=== PATIENT | male | born 1935 | race Caucasian/White ===

== ENCOUNTER 2018-06-25 13:53 | Inpatient (IN) | payer MEDICARE, BC ==
[2018-06-25 14:23] LABS: CHLORIDE,CL 98 mEq/L (98-106); SODIUM,NA 135 mEq/L (136-145)
[2018-06-25] MEDS ORDERED: Temazepam 15 MG Cap PO PRN (16:33)
[2018-06-25] MEDS ORDERED: Ondansetron 4 MG/2 ML SDV IV PRN (16:33)
[2018-06-25] MEDS ORDERED: Sodium Chloride 0.9% 10 ML Syringe FLUSH PRN (16:33)
[2018-06-25] MEDS ORDERED: Metoprolol Tartrate 25 MG Tab PO SCH (16:45)
[2018-06-25] MEDS ORDERED: Enoxaparin 60 MG/0.6 ML Syringe SUBCUT SCH (16:45)
[2018-06-25] MEDS: Pantoprazole 40 MG Vial IVPUSH SCH (17:19)
[2018-06-25] MEDS: Metoprolol Tartrate 25 MG Tab PO SCH (19:26)
[2018-06-25] MEDS: Insulin Glarg,Human.Rec.Analog 100 UNIT/ML ML SUBCUT SCH (19:42)
[2018-06-25] MEDS: Losartan 25 MG Tab PO SCH (19:43)
[2018-06-26] MEDS ORDERED: Metoprolol Tartrate 25 MG Tab PO ONE (08:58)
[2018-06-26] MEDS: Venlafaxine 75 MG Cap.ER PO SCH (09:20)
[2018-06-26] MEDS: Tamsulosin 0.4 MG Cap.ER PO SCH (09:20)
[2018-06-26] MEDS: Pantoprazole 40 MG Vial IVPUSH SCH (09:21)
[2018-06-26] MEDS: Metoprolol Tartrate 25 MG Tab PO SCH ×2 (09:53→19:50)
[2018-06-26] MEDS ORDERED: Metoprolol Tartrate 25 MG Tab ONE (09:54)
--- NOTE | 2018-06-26 13:39 | PCM.PN ---
- General Info Date of Service: 06/26/18 Admission Dx/Problem (Free Text): Atrial Fib with RVR Functional Status: Reports: Pain Controlled, Tolerating Diet, Ambulating - Review of Systems General: Denies: Weakness, Fatigue HEENT: Reports: No Symptoms Pulmonary: Denies: Shortness of Breath, Cough Cardiovascular: Reports: Edema. Denies: Chest Pain Gastrointestinal: Denies: Abdominal Pain, Nausea, Vomiting Genitourinary: Reports: No Symptoms Musculoskeletal: Reports: No Symptoms Skin: Reports: No Symptoms Neurological: Reports: No Symptoms - Patient Data Vitals - Most Recent: Last Vital Signs Temp 97.6 F 06/26/18 12:00 Pulse 98 06/26/18 12:00 Resp 18 06/26/18 12:00 BP 120/64 06/26/18 12:00 Pulse Ox 99 06/26/18 12:00 Weight - Most Recent: 154 lb 9.6 oz Lab Results Last 24 Hours: Laboratory Results - last 24 hr 06/25/18 06/25/18 06/25/18 Range/Units 14:00 14:00 14:00 WBC 5.3 (5.0-10.0) 10^3/uL RBC 3.97 L (4.50-6.00) 10^6/uL Hgb 11.7 L (14.0-18.0) g/dL Hct 36.1 L (40.0-54.0) % MCV 90.9 (82.0-94.0) fL MCH 29.5 (27.0-32.0) pg MCHC 32.4 L (33.0-38.0) g/dL RDW Coeff of Alisson 14.1 (11.0-15.0) % Plt Count 410 H (150-400) 10^3/uL Neut % (Auto) 68.3 (35-85) % Lymph % (Auto) 19.7 (10-55) % [place] % (Auto) 11.6 (0-16) % Eos % (Auto) 0.2 (0-5) % Baso % (Auto) 0.2 (0-3) % Neut # (Auto) 3.64 (1.80-7.00) 10^3/uL Lymph # (Auto) 1.05 (1.00-4.80) 10^3/uL [place] # (Auto) 0.62 (0.00-0.80) 10^3/uL Eos # (Auto) 0.01 (0.00-0.45) 10^3/uL Baso # (Auto) 0.01 10^3/uL Sodium 135 L (136-145) mEq/L Potassium 4.9 (3.5-5.0) mEq/L Chloride 98 (98-106) mEq/L Carbon Dioxide 25 (21-32) mmol/L BUN 25 H (7-18) mg/dL Creatinine 1.9 H (0.7-1.3) mg/dL Est Cr Clr Drug Dosing TNP Estimated GFR (MDRD) 34 L (>=60) mL/min Glucose 549 H* D (75-99) mg/dL POC Glucose (75-105) mg/dl Calcium 9.1 (8.4-10.1) mg/dL Total Bilirubin 0.4 (0.0-1.0) mg/dL AST 30 (15-37) U/L ALT 67 (12-78) U/L Alkaline Phosphatase 215 H (46-116) U/L Troponin I 0.088 H (0.00-0.06) ng/mL C-Reactive Protein 2.4 H (0.2-0.8) mg/dL Total Protein 6.8 (6.4-8.2) g/dL Albumin 2.3 L (3.4-5.0) g/dL Urine Color Yellow (YELLOW) Urine Appearance Clear (CLEAR) Urine pH 5.0 (4.5-8.0) Ur Specific [place] 1.015 (1.003-1.020) Urine Protein Trace H (NEGATIVE) mg/dL Urine Glucose (UA) >=1000 H (NEGATIVE) mg/dL Urine Ketones Negative (NEGATIVE) mg/dL Urine Occult Blood Negative (NEGATIVE) Urine Nitrite Negative (NEGATIVE) Urine Bilirubin Negative (NEGATIVE) Urine Urobilinogen 0.2 (0.2-1.0) EU/dL Ur Leukocyte Esterase Negative (NEGATIVE) Urine RBC Not seen (0-5) /HPF Urine WBC Not seen (0-5) /HPF Ur Epithelial Cells Occasional H (NOT SEEN) /HPF Urine Mucus Occasional H (NOT SEEN) /HPF 06/25/18 06/25/18 06/26/18 Range/Units 19:40 21:09 07:00 WBC (5.0-10.0) 10^3/uL RBC (4.50-6.00) 10^6/uL Hgb (14.0-18.0) g/dL Hct (40.0-54.0) % MCV (82.0-94.0) fL MCH (27.0-32.0) pg MCHC (33.0-38.0) g/dL RDW Coeff of Alisson (11.0-15.0) % Plt Count (150-400) 10^3/uL Neut % (Auto) (35-85) % Lymph % (Auto) (10-55) % [place] % (Auto) (0-16) % Eos % (Auto) (0-5) % Baso % (Auto) (0-3) % Neut # (Auto) (1.80-7.00) 10^3/uL Lymph # (Auto) (1.00-4.80) 10^3/uL [place] # (Auto) (0.00-0.80) 10^3/uL Eos # (Auto) (0.00-0.45) 10^3/uL Baso # (Auto) 10^3/uL Sodium (136-145) mEq/L Potassium (3.5-5.0) mEq/L Chloride (98-106) mEq/L Carbon Dioxide (21-32) mmol/L BUN (7-18) mg/dL Creatinine (0.7-1.3) mg/dL Est Cr Clr Drug Dosing Estimated GFR (MDRD) (>=60) mL/min Glucose (75-99) mg/dL POC Glucose 300 H 225 H (75-105) mg/dl Calcium (8.4-10.1) mg/dL Total Bilirubin (0.0-1.0) mg/dL AST (15-37) U/L ALT (12-78) U/L Alkaline Phosphatase (46-116) U/L Troponin I 0.084 H (0.00-0.06) ng/mL C-Reactive Protein (0.2-0.8) mg/dL Total Protein (6.4-8.2) g/dL Albumin (3.4-5.0) g/dL Urine Color (YELLOW) Urine Appearance (CLEAR) Urine pH (4.5-8.0) Ur Specific [place] (1.003-1.020) Urine Protein (NEGATIVE) mg/dL Urine Glucose (UA) (NEGATIVE) mg/dL Urine Ketones (NEGATIVE) mg/dL Urine Occult Blood (NEGATIVE) Urine Nitrite (NEGATIVE) Urine Bilirubin (NEGATIVE) Urine Urobilinogen (0.2-1.0) EU/dL Ur Leukocyte Esterase (NEGATIVE) Urine RBC (0-5) /HPF Urine WBC (0-5) /HPF Ur Epithelial Cells (NOT SEEN) /HPF Urine Mucus (NOT SEEN) /HPF 06/26/18 Range/Units 08:01 WBC (5.0-10.0) 10^3/uL RBC (4.50-6.00) 10^6/uL Hgb (14.0-18.0) g/dL Hct (40.0-54.0) % MCV (82.0-94.0) fL MCH (27.0-32.0) pg MCHC (33.0-38.0) g/dL RDW Coeff of Alisson (11.0-15.0) % Plt Count (150-400) 10^3/uL Neut % (Auto) (35-85) % Lymph % (Auto) (10-55) % [place] % (Auto) (0-16) % Eos % (Auto) (0-5) % Baso % (Auto) (0-3) % Neut # (Auto) (1.80-7.00) 10^3/uL Lymph # (Auto) (1.00-4.80) 10^3/uL [place] # (Auto) (0.00-0.80) 10^3/uL Eos # (Auto) (0.00-0.45) 10^3/uL Baso # (Auto) 10^3/uL Sodium (136-145) mEq/L Potassium (3.5-5.0) mEq/L Chloride (98-106) mEq/L Carbon Dioxide (21-32) mmol/L BUN (7-18) mg/dL Creatinine (0.7-1.3) mg/dL Est Cr Clr Drug Dosing Estimated GFR (MDRD) (>=60) mL/min Glucose (75-99) mg/dL POC Glucose 53 L (75-105) mg/dl Calcium (8.4-10.1) mg/dL Total Bilirubin (0.0-1.0) mg/dL AST (15-37) U/L ALT (12-78) U/L Alkaline Phosphatase (46-116) U/L Troponin I (0.00-0.06) ng/mL C-Reactive Protein (0.2-0.8) mg/dL Total Protein (6.4-8.2) g/dL Albumin (3.4-5.0) g/dL Urine Color (YELLOW) Urine Appearance (CLEAR) Urine pH (4.5-8.0) Ur Specific [place] (1.003-1.020) Urine Protein (NEGATIVE) mg/dL Urine Glucose (UA) (NEGATIVE) mg/dL Urine Ketones (NEGATIVE) mg/dL Urine Occult Blood (NEGATIVE) Urine Nitrite (NEGATIVE) Urine Bilirubin (NEGATIVE) Urine Urobilinogen (0.2-1.0) EU/dL Ur Leukocyte Esterase (NEGATIVE) Urine RBC (0-5) /HPF Urine WBC (0-5) /HPF Ur Epithelial Cells (NOT SEEN) /HPF Urine Mucus (NOT SEEN) /HPF Med Orders - Current: Current Medications Enoxaparin Sodium (Lovenox) 60 mg SUBCUT 1600 [facility] Last Admin: 06/25/18 17:19 Dose: 60 mg Insulin Aspart (Novolog) 0 unit SUBCUT WITHMEALSANDBED [facility]; Protocol Last Admin: 06/26/18 13:16 Dose: 8 units Insulin Glargine (Lantus) 30 unit SUBCUT BEDTIME [facility] Last Admin: 06/25/18 19:42 Dose: 30 units Losartan Potassium (Cozaar) 50 mg PO BEDTIME [facility] Last Admin: 06/25/18 19:43 Dose: 50 mg Metoprolol Tartrate (Lopressor) 37.5 mg PO BID [facility] Ondansetron HCl (Zofran) 4 mg IV Q4H PRN PRN Reason: Nausea/Vomiting Pantoprazole Sodium (Protonix Iv) 40 mg IVPUSH 0800 [facility] Last Admin: 06/26/18 09:21 Dose: 40 mg Sodium Chloride (Saline Flush) 10 ml FLUSH ASDIRECTED PRN PRN Reason: Keep Vein Open Tamsulosin HCl (Flomax) 0.4 mg PO DAILY [facility] Last Admin: 06/26/18 09:20 Dose: 0.4 mg Temazepam (Restoril) 15 mg PO BEDTIME PRN PRN Reason: Sleep Venlafaxine HCl (Effexor Xr) 150 mg PO DAILY [facility] Last Admin: 06/26/18 09:20 Dose: 150 mg Discontinued Medications Insulin Aspart (Novolog) 15 unit SUBCUT ONETIME ONE Stop: 06/25/18 17:06 Last Admin: 06/25/18 17:19 Dose: 15 units Metoprolol Tartrate (Lopressor) 25 mg PO Q12H [facility] Last Admin: 06/25/18 17:18 Dose: 25 mg Metoprolol Tartrate (Lopressor) 25 mg PO BID [facility] Last Admin: 06/26/18 09:53 Dose: 25 mg Metoprolol Tartrate (Lopressor) 12.5 mg PO ONETIME ONE Stop: 06/26/18 08:59 Last Admin: 06/26/18 09:20 Dose: 12.5 mg Metoprolol Tartrate (Lopressor) Confirm Administered Dose 25 mg .ROUTE .STK-MED ONE Stop: 06/26/18 09:55 Last Admin: 06/26/18 09:53 Dose: Not Given - Exam General: Alert, Oriented HEENT: Mucous Membr. Moist/[place] Neck: Supple Lungs: Clear to Auscultation, Normal Respiratory Effort Cardiovascular: Irregular Rhythm, Tachycardia GI/Abdominal Exam: Normal Bowel Sounds, Soft, Non-Tender Extremities: No Pedal Edema (LLE 2-3+ edema, pitting) Skin: Warm, Dry Neurological: No New Focal Deficit - Problem List & Annotations (1) Atrial fibrillation with RVR SNOMED Code(s): 332550924014512 Code(s): I48.91 - UNSPECIFIED ATRIAL FIBRILLATION Status: Acute Priority : High Current Visit: Yes - Problem List Review Problem List Initiated/Reviewed/Updated: Yes - My Orders Last 24 Hours: My Active Orders 06/26/18 20:00 Metoprolol Tartrate [Lopressor] 37.5 mg PO BID - Assessment Assessment:: New Onset Atrial Fib with RVR. - Plan Plan:: Patient feeling good today. Denies nausea. No shortness of breath or chest discomfort. Denies palpitations. Able to eat without difficulty after returning from CT scan this am. Heart rhythm still noted atrial fib with rate in the 130s. Blood pressure stable this am 150/70s. Blood sugar was high on admit. Got 15 units on admit. This am, blood sugar down to 44. Does have edema 2-3+ pitting in LLE. Did increase Metoprolol to 37.5 mg BID to see if we get better control of his rate. Continue to monitor telemetry. Sliding scale insulin, will allow us to control overall dose of Lantus with needed requirements on discharge. Start Eliquis BID, renal dose at 2.5 mg BID. Inappropriate for discharge due to ongoing RVR and uncontrolled diabetes.
[2018-06-26] MEDS: Losartan 25 MG Tab PO SCH (19:49)
[2018-06-26] MEDS: Apixaban 5 MG Tab PO SCH (19:51)
[2018-06-26] MEDS: Insulin Glarg,Human.Rec.Analog 100 UNIT/ML ML SUBCUT SCH (20:53)
[2018-06-27] MEDS: Apixaban 5 MG Tab PO SCH ×2 (07:32→20:02)
[2018-06-27] MEDS: Metoprolol Tartrate 25 MG Tab PO SCH ×2 (07:32→20:03)
[2018-06-27] MEDS: Tamsulosin 0.4 MG Cap.ER PO SCH (07:34)
[2018-06-27] MEDS: Venlafaxine 75 MG Cap.ER PO SCH (07:34)
[2018-06-27] MEDS: Pantoprazole 40 MG Vial IVPUSH SCH (07:49)
[2018-06-27] MEDS ORDERED: Insulin Aspart 100 Units/ML 3 ML Pen SUBCUT SCH (12:00)
--- NOTE | 2018-06-27 14:04 | PCM.PN ---
- General Info Date of Service: 06/27/18 Functional Status: Reports: Pain Controlled, Tolerating Diet, Ambulating, Urinating - Review of Systems General: Reports: No Symptoms HEENT: Reports: No Symptoms Pulmonary: Reports: Shortness of Breath Cardiovascular: Reports: No Symptoms Gastrointestinal: Reports: No Symptoms. Denies: Nausea, Vomiting Genitourinary: Reports: No Symptoms Musculoskeletal: Reports: No Symptoms Skin: Reports: No Symptoms Neurological: Reports: No Symptoms Psychiatric: Reports: No Symptoms - Patient Data Vitals - Most Recent: Last Vital Signs Temp 97.3 F 06/27/18 12:00 Pulse 62 06/27/18 12:00 Resp 16 06/27/18 12:00 BP 121/56 L 06/27/18 12:00 Pulse Ox 99 06/27/18 12:00 Weight - Most Recent: 154 lb 9.6 oz Lab Results Last 24 Hours: Laboratory Results - last 24 hr 06/26/18 06/26/18 06/26/18 Range/Units 09:27 11:57 17:13 WBC (5.0-10.0) 10^3/uL RBC (4.50-6.00) 10^6/uL Hgb (14.0-18.0) g/dL Hct (40.0-54.0) % MCV (82.0-94.0) fL MCH (27.0-32.0) pg MCHC (33.0-38.0) g/dL RDW Coeff of Alisson (11.0-15.0) % Plt Count (150-400) 10^3/uL Neut % (Auto) (35-85) % Lymph % (Auto) (10-55) % [place] % (Auto) (0-16) % Eos % (Auto) (0-5) % Baso % (Auto) (0-3) % Neut # (Auto) (1.80-7.00) 10^3/uL Lymph # (Auto) (1.00-4.80) 10^3/uL [place] # (Auto) (0.00-0.80) 10^3/uL Eos # (Auto) (0.00-0.45) 10^3/uL Baso # (Auto) 10^3/uL Sodium (136-145) mEq/L Potassium (3.5-5.0) mEq/L Chloride (98-106) mEq/L Carbon Dioxide (21-32) mmol/L BUN (7-18) mg/dL Creatinine (0.7-1.3) mg/dL Est Cr Clr Drug Dosing mL/min Estimated GFR (MDRD) (>=60) mL/min Glucose (75-99) mg/dL POC Glucose 211 H 331 H 175 H (75-105) mg/dl Calcium (8.4-10.1) mg/dL NT-Pro-B Natriuret Pep (0-1000) pg/mL 06/26/18 06/27/18 06/27/18 Range/Units 20:40 04:02 04:43 WBC (5.0-10.0) 10^3/uL RBC (4.50-6.00) 10^6/uL Hgb (14.0-18.0) g/dL Hct (40.0-54.0) % MCV (82.0-94.0) fL MCH (27.0-32.0) pg MCHC (33.0-38.0) g/dL RDW Coeff of Alisson (11.0-15.0) % Plt Count (150-400) 10^3/uL Neut % (Auto) (35-85) % Lymph % (Auto) (10-55) % [place] % (Auto) (0-16) % Eos % (Auto) (0-5) % Baso % (Auto) (0-3) % Neut # (Auto) (1.80-7.00) 10^3/uL Lymph # (Auto) (1.00-4.80) 10^3/uL [place] # (Auto) (0.00-0.80) 10^3/uL Eos # (Auto) (0.00-0.45) 10^3/uL Baso # (Auto) 10^3/uL Sodium (136-145) mEq/L Potassium (3.5-5.0) mEq/L Chloride (98-106) mEq/L Carbon Dioxide (21-32) mmol/L BUN (7-18) mg/dL Creatinine (0.7-1.3) mg/dL Est Cr Clr Drug Dosing mL/min Estimated GFR (MDRD) (>=60) mL/min Glucose (75-99) mg/dL POC Glucose 221 H 43 L* 93 (75-105) mg/dl Calcium (8.4-10.1) mg/dL NT-Pro-B Natriuret Pep (0-1000) pg/mL 06/27/18 06/27/18 06/27/18 Range/Units 07:30 08:50 08:50 WBC 4.9 L (5.0-10.0) 10^3/uL RBC 3.60 L (4.50-6.00) 10^6/uL Hgb 10.7 L (14.0-18.0) g/dL Hct 33.1 L (40.0-54.0) % MCV 91.9 (82.0-94.0) fL MCH 29.7 (27.0-32.0) pg MCHC 32.3 L (33.0-38.0) g/dL RDW Coeff of Alisson 14.4 (11.0-15.0) % Plt Count 310 (150-400) 10^3/uL Neut % (Auto) 67.7 (35-85) % Lymph % (Auto) 17.3 (10-55) % [place] % (Auto) 12.8 (0-16) % Eos % (Auto) 1.8 (0-5) % Baso % (Auto) 0.4 (0-3) % Neut # (Auto) 3.33 (1.80-7.00) 10^3/uL Lymph # (Auto) 0.85 L (1.00-4.80) 10^3/uL [place] # (Auto) 0.63 (0.00-0.80) 10^3/uL Eos # (Auto) 0.09 (0.00-0.45) 10^3/uL Baso # (Auto) 0.02 10^3/uL Sodium 138 (136-145) mEq/L Potassium 5.0 (3.5-5.0) mEq/L Chloride 104 (98-106) mEq/L Carbon Dioxide 28 (21-32) mmol/L BUN 28 H (7-18) mg/dL Creatinine 1.6 H (0.7-1.3) mg/dL Est Cr Clr Drug Dosing 34.44 mL/min Estimated GFR (MDRD) 42 L (>=60) mL/min Glucose 206 H D (75-99) mg/dL POC Glucose 168 H (75-105) mg/dl Calcium 9.0 (8.4-10.1) mg/dL NT-Pro-B Natriuret Pep 3619 H (0-1000) pg/mL 06/27/18 Range/Units 11:43 WBC (5.0-10.0) 10^3/uL RBC (4.50-6.00) 10^6/uL Hgb (14.0-18.0) g/dL Hct (40.0-54.0) % MCV (82.0-94.0) fL MCH (27.0-32.0) pg MCHC (33.0-38.0) g/dL RDW Coeff of Alisson (11.0-15.0) % Plt Count (150-400) 10^3/uL Neut % (Auto) (35-85) % Lymph % (Auto) (10-55) % [place] % (Auto) (0-16) % Eos % (Auto) (0-5) % Baso % (Auto) (0-3) % Neut # (Auto) (1.80-7.00) 10^3/uL Lymph # (Auto) (1.00-4.80) 10^3/uL [place] # (Auto) (0.00-0.80) 10^3/uL Eos # (Auto) (0.00-0.45) 10^3/uL Baso # (Auto) 10^3/uL Sodium (136-145) mEq/L Potassium (3.5-5.0) mEq/L Chloride (98-106) mEq/L Carbon Dioxide (21-32) mmol/L BUN (7-18) mg/dL Creatinine (0.7-1.3) mg/dL Est Cr Clr Drug Dosing mL/min Estimated GFR (MDRD) (>=60) mL/min Glucose (75-99) mg/dL POC Glucose 316 H (75-105) mg/dl Calcium (8.4-10.1) mg/dL NT-Pro-B Natriuret Pep (0-1000) pg/mL Med Orders - Current: Current Medications Apixaban (Eliquis) 2.5 mg PO BID [facility] Last Admin: 06/27/18 07:32 Dose: 2.5 mg Insulin Aspart (Novolog) 0 unit SUBCUT BID@1200,1730 [facility]; Protocol Last Admin: 06/27/18 13:09 Dose: 4 units Insulin Glargine (Lantus) 20 unit SUBCUT BEDTIME [facility] Losartan Potassium (Cozaar) 50 mg PO BEDTIME [facility] Last Admin: 06/26/18 19:49 Dose: 50 mg Metoprolol Tartrate (Lopressor) 37.5 mg PO BID [facility] Last Admin: 06/27/18 07:32 Dose: 37.5 mg Ondansetron HCl (Zofran) 4 mg IV Q4H PRN PRN Reason: Nausea/Vomiting Pantoprazole Sodium (Protonix Iv) 40 mg IVPUSH 0800 [facility] Last Admin: 06/27/18 07:49 Dose: 40 mg Sodium Chloride (Saline Flush) 10 ml FLUSH ASDIRECTED PRN PRN Reason: Keep Vein Open Tamsulosin HCl (Flomax) 0.4 mg PO DAILY [facility] Last Admin: 06/27/18 07:34 Dose: 0.4 mg Temazepam (Restoril) 15 mg PO BEDTIME PRN PRN Reason: Sleep Venlafaxine HCl (Effexor Xr) 150 mg PO DAILY [facility] Last Admin: 06/27/18 07:34 Dose: 150 mg Discontinued Medications Enoxaparin Sodium (Lovenox) 60 mg SUBCUT 1600 [facility] Last Admin: 06/25/18 17:19 Dose: 60 mg Insulin Aspart (Novolog) 0 unit SUBCUT WITHMEALSANDBED [facility]; Protocol Last Admin: 06/27/18 07:37 Dose: 2 units Insulin Aspart (Novolog) 15 unit SUBCUT ONETIME ONE Stop: 06/25/18 17:06 Last Admin: 06/25/18 17:19 Dose: 15 units Insulin Aspart (Novolog) 0 unit SUBCUT BID@1200,1730 [facility]; Protocol Last Admin: 06/27/18 12:37 Dose: Not Given Insulin Glargine (Lantus) 30 unit SUBCUT BEDTIME [facility] Last Admin: 06/26/18 20:53 Dose: 30 units Metoprolol Tartrate (Lopressor) 25 mg PO Q12H [facility] Last Admin: 06/25/18 17:18 Dose: 25 mg Metoprolol Tartrate (Lopressor) 25 mg PO BID [facility] Last Admin: 06/26/18 09:53 Dose: 25 mg Metoprolol Tartrate (Lopressor) 12.5 mg PO ONETIME ONE Stop: 06/26/18 08:59 Last Admin: 06/26/18 09:20 Dose: 12.5 mg Metoprolol Tartrate (Lopressor) Confirm Administered Dose 25 mg .ROUTE .STK-MED ONE Stop: 06/26/18 09:55 Last Admin: 06/26/18 09:53 Dose: Not Given - Exam General: Alert, Oriented, Cooperative, No Acute Distress Neck: Supple, Trachea Midline, No JVD, No Thyromegaly Lungs: Clear to Auscultation, Normal Respiratory Effort Cardiovascular: Irregular Rhythm, Other (Rate 110 on exam.) (Male) Exam: Deferred Back Exam: Normal Inspection, Full Range of Motion. No: CVA Tenderness (L), CVA Tenderness (R) Extremities: Normal Inspection, Normal Range of Motion, Non-Tender, No Pedal Edema, Normal Capillary Refill Peripheral Pulses: 2+: Radial (L), Radial (R), Posterior Tibial (L), Posterior Tibial (R), Dorsalis Pedis (L), Dorsalis Pedis (R) Skin: Warm, Dry, Intact Neurological: No New Focal Deficit, Normal Speech Psy/Mental Status: Alert, Normal Affect, Normal Mood - Problem List Review Problem List Initiated/Reviewed/Updated: Yes - My Orders Last 24 Hours: My Active Orders 06/27/18 12:35 Insulin Aspart [NovoLOG] 0 unit SUBCUT BID@1200,1730 06/27/18 20:00 Insulin Glarg,Human.Rec.Analog [LantUS] 20 unit SUBCUT BEDTIME 06/28/18 05:00 BMP [BASIC METABOLIC PANEL,BMP] [CHEM] DAILY CBC WITH AUTO DIFF [HEME] DAILY PRO B-TYPE NATRIUR PEPT,BNPPRO [CHEM] DAILY 06/29/18 05:00 BMP [BASIC METABOLIC PANEL,BMP] [CHEM] DAILY CBC WITH AUTO DIFF [HEME] DAILY PRO B-TYPE NATRIUR PEPT,BNPPRO [CHEM] DAILY - Assessment Assessment:: New Onset Atrial Fib with RVR. - Plan Plan:: Patient feeling good today. Denies nausea. No shortness of breath or chest discomfort. Denies palpitations. Able to eat without difficulty after returning from CT scan this am. Heart rhythm still noted atrial fib with rate in the 130s. Blood pressure stable this am 150/70s. Blood sugar was high on admit. Got 15 units on admit. This am, blood sugar down to 44. Does have edema 2-3+ pitting in LLE. Did increase Metoprolol to 37.5 mg BID to see if we get better control of his rate. Continue to monitor telemetry. Sliding scale insulin, will allow us to control overall dose of Lantus with needed requirements on discharge. Start Eliquis BID, renal dose at 2.5 mg BID. Inappropriate for discharge due to ongoing RVR and uncontrolled diabetes. 06/27/18 The patient today has a HR that fluctuates at times controlled a-fib in the 70s , to back up to uncontrolled a-fib 110. Will continue current dose of Metoprolol at this time. The patient reports some mild shortness of breath. He reports his nausea is improved. The patient BS have been low in the 40s in the morning, elevate with giving juice and food at that time. The patient then during the day elevates in the 300s. I have decreased his insluin at bedtime, and added BID sliding scale during the day. Will continue admit.
[2018-06-27] MEDS: Losartan 25 MG Tab PO SCH (20:04)
[2018-06-27] MEDS: Insulin Glarg,Human.Rec.Analog 100 UNIT/ML ML SUBCUT SCH (21:15)
[2018-06-28] MEDS: Venlafaxine 75 MG Cap.ER PO SCH (08:05)
[2018-06-28] MEDS: Apixaban 5 MG Tab PO SCH ×2 (08:06→20:09)
[2018-06-28] MEDS: Metoprolol Tartrate 25 MG Tab PO SCH (08:06)
[2018-06-28] MEDS: Tamsulosin 0.4 MG Cap.ER PO SCH (08:06)
[2018-06-28] MEDS: Pantoprazole 40 MG Vial IVPUSH SCH (08:08)
[2018-06-28] MEDS ORDERED: Metoprolol Tartrate 25 MG Tab PO ONE (08:29)
--- NOTE | 2018-06-28 17:03 | PCM.PN ---
- General Info Date of Service: 06/28/18 Functional Status: Reports: Pain Controlled, Tolerating Diet, Ambulating, Urinating - Review of Systems General: Reports: No Symptoms HEENT: Reports: No Symptoms Pulmonary: Reports: No Symptoms Cardiovascular: Reports: No Symptoms Gastrointestinal: Reports: No Symptoms Genitourinary: Reports: No Symptoms Musculoskeletal: Reports: No Symptoms Skin: Reports: No Symptoms Neurological: Reports: No Symptoms Psychiatric: Reports: No Symptoms - Patient Data Vitals - Most Recent: Last Vital Signs Temp 97.9 F 06/28/18 15:35 Pulse 89 06/28/18 15:35 Resp 16 06/28/18 15:35 BP 117/62 06/28/18 15:35 Pulse Ox 100 06/28/18 15:35 Weight - Most Recent: 154 lb 9.6 oz Lab Results Last 24 Hours: Laboratory Results - last 24 hr 06/27/18 06/27/18 06/28/18 Range/Units 17:03 20:35 07:00 WBC 4.9 L (5.0-10.0) 10^3/uL RBC 3.92 L (4.50-6.00) 10^6/uL Hgb 11.4 L (14.0-18.0) g/dL Hct 35.6 L (40.0-54.0) % MCV 90.8 (82.0-94.0) fL MCH 29.1 (27.0-32.0) pg MCHC 32.0 L (33.0-38.0) g/dL RDW Coeff of Alisson 14.0 (11.0-15.0) % Plt Count 328 (150-400) 10^3/uL Neut % (Auto) 61.9 (35-85) % Lymph % (Auto) 23.6 (10-55) % [place] % (Auto) 12.3 (0-16) % Eos % (Auto) 1.6 (0-5) % Baso % (Auto) 0.6 (0-3) % Neut # (Auto) 3.02 (1.80-7.00) 10^3/uL Lymph # (Auto) 1.15 (1.00-4.80) 10^3/uL [place] # (Auto) 0.60 (0.00-0.80) 10^3/uL Eos # (Auto) 0.08 (0.00-0.45) 10^3/uL Baso # (Auto) 0.03 10^3/uL Sodium (136-145) mEq/L Potassium (3.5-5.0) mEq/L Chloride (98-106) mEq/L Carbon Dioxide (21-32) mmol/L BUN (7-18) mg/dL Creatinine (0.7-1.3) mg/dL Est Cr Clr Drug Dosing mL/min Estimated GFR (MDRD) (>=60) mL/min Glucose (75-99) mg/dL POC Glucose 284 H 347 H (75-105) mg/dl Calcium (8.4-10.1) mg/dL NT-Pro-B Natriuret Pep (0-1000) pg/mL 06/28/18 06/28/18 06/28/18 Range/Units 07:10 07:53 11:51 WBC (5.0-10.0) 10^3/uL RBC (4.50-6.00) 10^6/uL Hgb (14.0-18.0) g/dL Hct (40.0-54.0) % MCV (82.0-94.0) fL MCH (27.0-32.0) pg MCHC (33.0-38.0) g/dL RDW Coeff of Alisson (11.0-15.0) % Plt Count (150-400) 10^3/uL Neut % (Auto) (35-85) % Lymph % (Auto) (10-55) % [place] % (Auto) (0-16) % Eos % (Auto) (0-5) % Baso % (Auto) (0-3) % Neut # (Auto) (1.80-7.00) 10^3/uL Lymph # (Auto) (1.00-4.80) 10^3/uL [place] # (Auto) (0.00-0.80) 10^3/uL Eos # (Auto) (0.00-0.45) 10^3/uL Baso # (Auto) 10^3/uL Sodium 139 (136-145) mEq/L Potassium 4.5 (3.5-5.0) mEq/L Chloride 104 (98-106) mEq/L Carbon Dioxide 30 (21-32) mmol/L BUN 26 H (7-18) mg/dL Creatinine 1.5 H (0.7-1.3) mg/dL Est Cr Clr Drug Dosing 36.73 mL/min Estimated GFR (MDRD) 45 L (>=60) mL/min Glucose 133 H D (75-99) mg/dL POC Glucose 135 H 355 H (75-105) mg/dl Calcium 9.5 (8.4-10.1) mg/dL NT-Pro-B Natriuret Pep 4879 H (0-1000) pg/mL Med Orders - Current: Current Medications Apixaban (Eliquis) 2.5 mg PO BID [facility] Last Admin: 06/28/18 08:06 Dose: 2.5 mg Insulin Aspart (Novolog) 0 unit SUBCUT BID@1200,1730 [facility]; Protocol Last Admin: 06/28/18 11:54 Dose: 5 units Insulin Glargine (Lantus) 20 unit SUBCUT BEDTIME [facility] Last Admin: 06/27/18 21:15 Dose: 20 units Losartan Potassium (Cozaar) 50 mg PO BEDTIME [facility] Last Admin: 06/27/18 20:04 Dose: 50 mg Metoprolol Tartrate (Lopressor) 50 mg PO BID [facility] Ondansetron HCl (Zofran) 4 mg IV Q4H PRN PRN Reason: Nausea/Vomiting Pantoprazole Sodium (Protonix Iv) 40 mg IVPUSH 0800 [facility] Last Admin: 06/28/18 08:08 Dose: 40 mg Sodium Chloride (Saline Flush) 10 ml FLUSH ASDIRECTED PRN PRN Reason: Keep Vein Open Tamsulosin HCl (Flomax) 0.4 mg PO DAILY [facility] Last Admin: 06/28/18 08:06 Dose: 0.4 mg Temazepam (Restoril) 15 mg PO BEDTIME PRN PRN Reason: Sleep Venlafaxine HCl (Effexor Xr) 150 mg PO DAILY [facility] Last Admin: 06/28/18 08:05 Dose: 150 mg Discontinued Medications Enoxaparin Sodium (Lovenox) 60 mg SUBCUT 1600 [facility] Last Admin: 06/25/18 17:19 Dose: 60 mg Insulin Aspart (Novolog) 0 unit SUBCUT WITHMEALSANDBED [facility]; Protocol Last Admin: 06/27/18 07:37 Dose: 2 units Insulin Aspart (Novolog) 15 unit SUBCUT ONETIME ONE Stop: 06/25/18 17:06 Last Admin: 06/25/18 17:19 Dose: 15 units Insulin Aspart (Novolog) 0 unit SUBCUT BID@1200,1730 [facility]; Protocol Last Admin: 06/27/18 12:37 Dose: Not Given Insulin Glargine (Lantus) 30 unit SUBCUT BEDTIME [facility] Last Admin: 06/26/18 20:53 Dose: 30 units Metoprolol Tartrate (Lopressor) 25 mg PO Q12H [facility] Last Admin: 06/25/18 17:18 Dose: 25 mg Metoprolol Tartrate (Lopressor) 25 mg PO BID [facility] Last Admin: 06/26/18 09:53 Dose: 25 mg Metoprolol Tartrate (Lopressor) 37.5 mg PO BID [facility] Last Admin: 06/28/18 08:06 Dose: 37.5 mg Metoprolol Tartrate (Lopressor) 12.5 mg PO ONETIME ONE Stop: 06/26/18 08:59 Last Admin: 06/26/18 09:20 Dose: 12.5 mg Metoprolol Tartrate (Lopressor) Confirm Administered Dose 25 mg .ROUTE .STK-MED ONE Stop: 06/26/18 09:55 Last Admin: 06/26/18 09:53 Dose: Not Given Metoprolol Tartrate (Lopressor) 12.5 mg PO ONETIME ONE Stop: 06/28/18 08:30 Last Admin: 06/28/18 09:47 Dose: 12.5 mg - Exam General: Alert, Oriented, Cooperative, No Acute Distress Neck: Supple, Trachea Midline, No JVD, No Thyromegaly Lungs: Clear to Auscultation, Normal Respiratory Effort Cardiovascular: Irregular Rhythm (80 rate on exam) GI/Abdominal Exam: Normal Bowel Sounds, Soft, Non-Tender, No Organomegaly, No Distention, No Abnormal Bruit, No Mass, Pelvis Stable Back Exam: Normal Inspection, Full Range of Motion Extremities: Normal Inspection, Normal Range of Motion, Non-Tender, Normal Capillary Refill, Pedal Edema (+2 LLE. +1 RLE) Peripheral Pulses: 2+: Radial (L), Radial (R), Posterior Tibial (L), Posterior Tibial (R), Dorsalis Pedis (L), Dorsalis Pedis (R) Skin: Warm, Dry, Intact Neurological: No New Focal Deficit Psy/Mental Status: Alert, Normal Affect, Normal Mood - Problem List Review Problem List Initiated/Reviewed/Updated: Yes - My Orders Last 24 Hours: My Active Orders 06/27/18 20:00 Insulin Glarg,Human.Rec.Analog [LantUS] 20 unit SUBCUT BEDTIME 06/28/18 20:00 Metoprolol Tartrate [Lopressor] 50 mg PO BID 06/29/18 05:00 BMP [BASIC METABOLIC PANEL,BMP] [CHEM] DAILY CBC WITH AUTO DIFF [HEME] DAILY PRO B-TYPE NATRIUR PEPT,BNPPRO [CHEM] DAILY - Assessment Assessment:: New Onset Atrial Fib with RVR. - Plan Plan:: Patient feeling good today. Denies nausea. No shortness of breath or chest discomfort. Denies palpitations. Able to eat without difficulty after returning from CT scan this am. Heart rhythm still noted atrial fib with rate in the 130s. Blood pressure stable this am 150/70s. Blood sugar was high on admit. Got 15 units on admit. This am, blood sugar down to 44. Does have edema 2-3+ pitting in LLE. Did increase Metoprolol to 37.5 mg BID to see if we get better control of his rate. Continue to monitor telemetry. Sliding scale insulin, will allow us to control overall dose of Lantus with needed requirements on discharge. Start Eliquis BID, renal dose at 2.5 mg BID. Inappropriate for discharge due to ongoing RVR and uncontrolled diabetes. 06/27/18 The patient today has a HR that fluctuates at times controlled a-fib in the 70s , to back up to uncontrolled a-fib 110. Will continue current dose of Metoprolol at this time. The patient reports some mild shortness of breath. He reports his nausea is improved. The patient BS have been low in the 40s in the morning, elevate with giving juice and food at that time. The patient then during the day elevates in the 300s. I have decreased his insluin at bedtime, and added BID sliding scale during the day. Will continue admit. 06/28/18 The patient today has a HR that fluctuates at times controlled a-fib in the 70s, to back up to uncontrolled a-fib 140 with going to the bathroom. Patient reports being asymptomatic with this fluctuation. I Will increase dose of Metoprolol at this time to 50mg BID. The patient reports later today that his shortness of breath has improved. He reports his nausea is improved. The patient BS have been low in the 100s in the morning, after his bedtime insulin decrease. The sliding scale during the day has seem to be improving his sugars today. Today, he sitting up in the bed, appears to be doing well. He reports he does feel much better and feels he can go home tomorrow. Will continue admit and allow PCP to see the patient tomorrow.
[2018-06-28] MEDS: Losartan 25 MG Tab PO SCH (20:08)
[2018-06-28] MEDS: Metoprolol Tartrate 50 MG Tab PO SCH (20:09)
[2018-06-28] MEDS: Insulin Glarg,Human.Rec.Analog 100 UNIT/ML ML SUBCUT SCH (20:14)
[2018-06-29] MEDS: Apixaban 5 MG Tab PO SCH ×2 (07:50→19:50)
[2018-06-29] MEDS: Metoprolol Tartrate 50 MG Tab PO SCH ×2 (07:52→19:51)
[2018-06-29] MEDS: Venlafaxine 75 MG Cap.ER PO SCH (07:52)
[2018-06-29] MEDS: Tamsulosin 0.4 MG Cap.ER PO SCH (07:52)
[2018-06-29] MEDS: Pantoprazole 40 MG Vial IVPUSH SCH (08:30)
[2018-06-29] MEDS ORDERED: Insulin NPH/Insulin Regular,Human 70-30 100 Units/ML 10 ML Vial SUBCUT SCH ×2 (17:00)
[2018-06-29] MEDS ORDERED: Losartan 25 MG Tab PO SCH (20:00)
--- NOTE | 2018-06-29 20:01 | PCM.PN ---
- General Info Date of Service: 06/29/18 Admission Dx/Problem (Free Text): Atrial Fib with RVR Functional Status: Reports: Pain Controlled, Tolerating Diet, Ambulating - Review of Systems General: Denies: Fever, Weakness, Fatigue HEENT: Reports: No Symptoms Pulmonary: Denies: Shortness of Breath, Cough, Sputum Cardiovascular: Reports: Edema (LLE but much improved), Lightheadedness ( patient reports episode of feeling lightheaded while out ambulating yesterday afternoon). Denies: Chest Pain Gastrointestinal: Denies: Abdominal Pain, Nausea, Vomiting Genitourinary: Reports: No Symptoms Musculoskeletal: Reports: No Symptoms Skin: Reports: No Symptoms Neurological: Reports: Dizziness, Headache - Patient Data Vitals - Most Recent: Last Vital Signs Temp 96.8 F 06/29/18 16:00 Pulse 80 06/29/18 16:00 Resp 18 06/29/18 16:00 BP 123/57 L 06/29/18 16:00 Pulse Ox 100 06/29/18 16:00 Orthostatic Blood Pressure [ 70/46 Standing] Orthostatic Blood Pressure [ 100/57 Sitting] Orthostatic Blood Pressure [ 106/63 Supine] Weight - Most Recent: 154 lb 9.6 oz Lab Results Last 24 Hours: Laboratory Results - last 24 hr 06/28/18 06/29/18 06/29/18 Range/Units 20:03 07:00 07:00 WBC 6.1 (5.0-10.0) 10^3/uL RBC 3.95 L (4.50-6.00) 10^6/uL Hgb 11.7 L (14.0-18.0) g/dL Hct 36.1 L (40.0-54.0) % MCV 91.4 (82.0-94.0) fL MCH 29.6 (27.0-32.0) pg MCHC 32.4 L (33.0-38.0) g/dL RDW Coeff of Alisson 14.3 (11.0-15.0) % Plt Count 331 (150-400) 10^3/uL Neut % (Auto) 64.0 (35-85) % Lymph % (Auto) 22.5 (10-55) % [place] % (Auto) 11.4 (0-16) % Eos % (Auto) 1.6 (0-5) % Baso % (Auto) 0.5 (0-3) % Neut # (Auto) 3.91 (1.80-7.00) 10^3/uL Lymph # (Auto) 1.38 (1.00-4.80) 10^3/uL [place] # (Auto) 0.70 (0.00-0.80) 10^3/uL Eos # (Auto) 0.10 (0.00-0.45) 10^3/uL Baso # (Auto) 0.03 10^3/uL Sodium 140 (136-145) mEq/L Potassium 5.1 H (3.5-5.0) mEq/L Chloride 104 (98-106) mEq/L Carbon Dioxide 31 (21-32) mmol/L BUN 27 H (7-18) mg/dL Creatinine 1.6 H (0.7-1.3) mg/dL Est Cr Clr Drug Dosing 34.44 mL/min Estimated GFR (MDRD) 42 L (>=60) mL/min Glucose 79 D (75-99) mg/dL POC Glucose 296 H (75-105) mg/dl Calcium 9.5 (8.4-10.1) mg/dL NT-Pro-B Natriuret Pep 3304 H (0-1000) pg/mL 06/29/18 06/29/18 Range/Units 07:49 11:22 WBC (5.0-10.0) 10^3/uL RBC (4.50-6.00) 10^6/uL Hgb (14.0-18.0) g/dL Hct (40.0-54.0) % MCV (82.0-94.0) fL MCH (27.0-32.0) pg MCHC (33.0-38.0) g/dL RDW Coeff of Alisson (11.0-15.0) % Plt Count (150-400) 10^3/uL Neut % (Auto) (35-85) % Lymph % (Auto) (10-55) % [place] % (Auto) (0-16) % Eos % (Auto) (0-5) % Baso % (Auto) (0-3) % Neut # (Auto) (1.80-7.00) 10^3/uL Lymph # (Auto) (1.00-4.80) 10^3/uL [place] # (Auto) (0.00-0.80) 10^3/uL Eos # (Auto) (0.00-0.45) 10^3/uL Baso # (Auto) 10^3/uL Sodium (136-145) mEq/L Potassium (3.5-5.0) mEq/L Chloride (98-106) mEq/L Carbon Dioxide (21-32) mmol/L BUN (7-18) mg/dL Creatinine (0.7-1.3) mg/dL Est Cr Clr Drug Dosing mL/min Estimated GFR (MDRD) (>=60) mL/min Glucose (75-99) mg/dL POC Glucose 77 214 H (75-105) mg/dl Calcium (8.4-10.1) mg/dL NT-Pro-B Natriuret Pep (0-1000) pg/mL Med Orders - Current: Current Medications Apixaban (Eliquis) 2.5 mg PO BID [facility] Last Admin: 06/29/18 07:50 Dose: 2.5 mg Insulin Aspart (Novolog) 0 unit SUBCUT BID@1200,1730 [facility]; Protocol Last Admin: 06/29/18 18:00 Dose: 5 units Insulin Human Isoph/Insulin Regular (Humulin 70-30) 20 units SUBCUT 0730 [facility] Insulin Human Isoph/Insulin Regular (Humulin 70-30) 10 units SUBCUT 1700 [facility] Last Admin: 06/29/18 17:59 Dose: 10 unit Losartan Potassium (Cozaar) 25 mg PO BEDTIME [facility] Metoprolol Tartrate (Lopressor) 50 mg PO BID [facility] Last Admin: 06/29/18 07:52 Dose: 50 mg Ondansetron HCl (Zofran) 4 mg IV Q4H PRN PRN Reason: Nausea/Vomiting Pantoprazole Sodium (Protonix Iv) 40 mg IVPUSH 0800 [facility] Last Admin: 06/29/18 08:30 Dose: 40 mg Sodium Chloride (Saline Flush) 10 ml FLUSH ASDIRECTED PRN PRN Reason: Keep Vein Open Tamsulosin HCl (Flomax) 0.4 mg PO DAILY [facility] Last Admin: 06/29/18 07:52 Dose: 0.4 mg Temazepam (Restoril) 15 mg PO BEDTIME PRN PRN Reason: Sleep Venlafaxine HCl (Effexor Xr) 150 mg PO DAILY [facility] Last Admin: 06/29/18 07:52 Dose: 150 mg Discontinued Medications Enoxaparin Sodium (Lovenox) 60 mg SUBCUT 1600 [facility] Last Admin: 06/25/18 17:19 Dose: 60 mg Insulin Aspart (Novolog) 0 unit SUBCUT WITHMEALSANDBED [facility]; Protocol Last Admin: 06/27/18 07:37 Dose: 2 units Insulin Aspart (Novolog) 15 unit SUBCUT ONETIME ONE Stop: 06/25/18 17:06 Last Admin: 06/25/18 17:19 Dose: 15 units Insulin Aspart (Novolog) 0 unit SUBCUT BID@1200,1730 [facility]; Protocol Last Admin: 06/27/18 12:37 Dose: Not Given Insulin Glargine (Lantus) 30 unit SUBCUT BEDTIME [facility] Last Admin: 06/26/18 20:53 Dose: 30 units Insulin Glargine (Lantus) 20 unit SUBCUT BEDTIME [facility] Last Admin: 06/28/18 20:14 Dose: 20 units Insulin Human Isoph/Insulin Regular (Humulin 70-30) 0 units SUBCUT BIDAC [facility] Losartan Potassium (Cozaar) 50 mg PO BEDTIME [facility] Last Admin: 06/28/18 20:08 Dose: 50 mg Metoprolol Tartrate (Lopressor) 25 mg PO Q12H [facility] Last Admin: 06/25/18 17:18 Dose: 25 mg Metoprolol Tartrate (Lopressor) 25 mg PO BID [facility] Last Admin: 06/26/18 09:53 Dose: 25 mg Metoprolol Tartrate (Lopressor) 37.5 mg PO BID [facility] Last Admin: 06/28/18 08:06 Dose: 37.5 mg Metoprolol Tartrate (Lopressor) 12.5 mg PO ONETIME ONE Stop: 06/26/18 08:59 Last Admin: 06/26/18 09:20 Dose: 12.5 mg Metoprolol Tartrate (Lopressor) Confirm Administered Dose 25 mg .ROUTE .STK-MED ONE Stop: 06/26/18 09:55 Last Admin: 06/26/18 09:53 Dose: Not Given Metoprolol Tartrate (Lopressor) 12.5 mg PO ONETIME ONE Stop: 06/28/18 08:30 Last Admin: 06/28/18 09:47 Dose: 12.5 mg - Exam General: Alert, Oriented HEENT: Mucous Membr. Moist/[place] Neck: Supple Lungs: Clear to Auscultation, Normal Respiratory Effort Cardiovascular: Regular Rate, Regular Rhythm (rhythm varies at times between atrial fib and flutter) GI/Abdominal Exam: Normal Bowel Sounds, Soft, Non-Tender Extremities: Normal Inspection, Pedal Edema (1+ LLE, much improved since Friday) Skin: Warm, Dry Neurological: No New Focal Deficit - Problem List & Annotations (1) Atrial fibrillation with RVR SNOMED Code(s): 849122826864896 Code(s): I48.91 - UNSPECIFIED ATRIAL FIBRILLATION Status: Acute Priority : High Current Visit: Yes - Problem List Review Problem List Initiated/Reviewed/Updated: Yes - My Orders Last 24 Hours: My Active Orders 06/29/18 17:00 Insulin NPH/Insulin Reg,Human [HumuLIN 70-30] 10 units SUBCUT 1700 06/29/18 20:00 Losartan [Cozaar] 25 mg PO BEDTIME 06/30/18 07:30 Insulin NPH/Insulin Reg,Human [HumuLIN 70-30] 20 units SUBCUT 0730 - Assessment Assessment:: New Onset Atrial Fib with RVR. - Plan Plan:: Patient feeling good today. Denies nausea. No shortness of breath or chest discomfort. Denies palpitations. Able to eat without difficulty after returning from CT scan this am. Heart rhythm still noted atrial fib with rate in the 130s. Blood pressure stable this am 150/70s. Blood sugar was high on admit. Got 15 units on admit. This am, blood sugar down to 44. Does have edema 2-3+ pitting in LLE. Did increase Metoprolol to 37.5 mg BID to see if we get better control of his rate. Continue to monitor telemetry. Sliding scale insulin, will allow us to control overall dose of Lantus with needed requirements on discharge. Start Eliquis BID, renal dose at 2.5 mg BID. Inappropriate for discharge due to ongoing RVR and uncontrolled diabetes. 06/27/18 The patient today has a HR that fluctuates at times controlled a-fib in the 70s , to back up to uncontrolled a-fib 110. Will continue current dose of Metoprolol at this time. The patient reports some mild shortness of breath. He reports his nausea is improved. The patient BS have been low in the 40s in the morning, elevate with giving juice and food at that time. The patient then during the day elevates in the 300s. I have decreased his insluin at bedtime, and added BID sliding scale during the day. Will continue admit. 06/28/18 The patient today has a HR that fluctuates at times controlled a-fib in the 70s, to back up to uncontrolled a-fib 140 with going to the bathroom. Patient reports being asymptomatic with this fluctuation. I Will increase dose of Metoprolol at this time to 50mg BID. The patient reports later today that his shortness of breath has improved. He reports his nausea is improved. The patient BS have been low in the 100s in the morning, after his bedtime insulin decrease. The sliding scale during the day has seem to be improving his sugars today. Today, he sitting up in the bed, appears to be doing well. He reports he does feel much better and feels he can go home tomorrow. Will continue admit and allow PCP to see the patient tomorrow. 06-29-2018 Patient feels good this am at rest. He reports an episode yesterday afternoon while out walking where he became lightheaded. Heart rhythm does vary between atrial fib and flutter. Heart rate varies between 70-120. Stabilized in the 70s after metoprolol dose this am. Orthostatic blood pressure shows lying 106/ 63, sitting 100/57 and standing 70/46. Denies any symptoms with that. Blood sugars varied between 77 this am and up to 355 last night. Will decrease Losartan to 25 mg at bedtime. Will switch to 70/30 insulin, stop the Lantus and continue Novolog per sliding scales. Reevaluate labs in am. Monitor blood pressure closely.
[2018-06-30] MEDS ORDERED: Insulin NPH/Insulin Regular,Human 70-30 100 Units/ML 10 ML Vial SUBCUT SCH (07:30)
[2018-06-30] MEDS: Metoprolol Tartrate 50 MG Tab PO SCH (07:49)
[2018-06-30] MEDS: Apixaban 5 MG Tab PO SCH (07:49)
[2018-06-30] MEDS: Tamsulosin 0.4 MG Cap.ER PO SCH (07:49)
[2018-06-30] MEDS: Venlafaxine 75 MG Cap.ER PO SCH (07:50)
[2018-06-30] MEDS: Pantoprazole 40 MG Vial IVPUSH SCH (07:54)
[2018-06-30 07:55] VITALS: BP 138/77
[2018-06-30] MEDS ORDERED: Diltiazem 180 MG Cap.CD PO SCH (09:30)
[2018-06-30] MEDS ORDERED: Metoprolol Tartrate 25 MG Tab PO SCH (20:00)
--- NOTE | 2018-06-30 22:08 | PCM.DCSUM1 ---
Discharge Summary - Hospital Course Free Text/Narrative:: Patient presented to see Dr. Ramirez in clinic for hospital follow up for dehydration. Had continued to still feel and dizzy at times, started vomiting again on day of admit. On exam, heart rate increased and irregular. EKG showed new onset atrial fib. Admitted by DR. Ramirez for further work, control of Atrial fib with RVR. Started on Metoprolol 25 mg BID. Usual labs ordered. Diagnosis: Stroke: No Modified Yates Scale: No Symptoms at All Modified Yates Scale Score: 0 - Discharge Data Discharge Date: 06/30/18 Discharge Disposition: DC/Tfer W/I Hosp To [place] [id number] Condition: Good - Discharge Diagnosis/Problem(s) (1) Atrial fibrillation with RVR SNOMED Code(s): 459079764253834 ICD Code: I48.91 - UNSPECIFIED ATRIAL FIBRILLATION Status: Acute Priority : High - Patient Summary/Data Complications: none Hospital Course: Patient admitted with new onset atrial fib with RVR. Started on Metoprolol 25 mg on admit, had since been increased to 50 mg BID as still having difficulty controlling rate. On transfer to swing bed this am, heart rate still increases to 130s at times. Patient was found to have issues with orthostatic changes so Losartan was decreased yesterday to 25 mg at bedtime. Was out ambulating in [place] and felt near syncopal, felt like was going to lose balance. Blood sugars have still been variable, lower in the am. Was switched to Humulin 70/30 with novolog at meal time per sliding scale as needed. Overall, patient feels good while at rest. Does still feel unsteady when up at times. Relates had fallen a few times at home prior to his first admission. Has been started on Eliquis BID for the atrial fib. Echocardiogram done this am. Due to weakness, will have patient proceed with PT for strengthening and balance. Transfer to swing bed for ongoing cardiac monitoring and med changes. Will decrease metoprolol back down to 25 mg BID and add Cardizem CD 180 mg daily. Continue to monitor blood pressure. - Discharge Plan Home Medications: Home Meds Ascorbate Calcium [Vitamin C] 500 mg PO DAILY 06/18/18 [History] Cholecalciferol (Vitamin D3) [Vitamin D3] 1,000 units PO DAILY 06/18/18 [History ] Cinnamon Bark [Cinnamon] 1,000 mg PO DAILY 06/18/18 [History] Ibuprofen [Advil] 400 mg PO DAILY PRN 06/18/18 [History] Losartan Potassium 50 mg PO BEDTIME 06/18/18 [History] Magnesium Oxide [Magnesium] 400 mg PO DAILY 06/18/18 [History] Piroxicam 20 mg PO BEDTIME 06/18/18 [History] Tamsulosin HCl 0.4 mg PO DAILY 06/18/18 [History] Venlafaxine [Venlafaxine HCl ER] 150 mg PO DAILY 06/18/18 [History] Vitamin B Complex 1 cap PO DAILY 06/18/18 [History] Ezetimibe/Simvastatin [Vytorin 10-20 mg Tablet] 0.5 tab PO DAILY 06/19/18 [ History] Insulin Glarg,Human.Rec.Analog [Lantus] 30 unit SUBCUT BEDTIME #10 ml 06/21/18 [ Rx] Calcium Carbonate/Vitamin D3 [Calcium 500 mg Chewable Tablet] 1 tab PO DAILY 04/03 [History] Furosemide 1 tab PO DAILY 06/25/18 [History] amLODIPine Besylate [Amlodipine Besylate] 1 tab PO DAILY 06/25/18 [History] Patient Handouts: Atrial Fibrillation - Discharge Summary/Plan Comment DC Time >30 min.: Yes Discharge Summary/Plan Comment: Transfer to swing bed Time with patient 20 minutes Time for orders 10,minutes Time for documentation 15 minutes - General Info Date of Service: 06/30/18 Admission Dx/Problem (Free Text: Atrial Fib with RVR Functional Status: Reports: Pain Controlled, Tolerating Diet, Ambulating - Review of Systems General: Reports: Weakness, Fatigue HEENT: Denies: Rhinitis Pulmonary: Denies: Shortness of Breath, Cough Cardiovascular: Reports: Edema, Lightheadedness. Denies: Chest Pain Gastrointestinal: Denies: Abdominal Pain, Nausea, Vomiting Genitourinary: Reports: No Symptoms Musculoskeletal: Reports: No Symptoms Skin: Reports: No Symptoms Neurological: Reports: Dizziness, Syncope, Weakness - Patient Data Vitals - Most Recent: Last Vital Signs Temp 98.3 F 06/30/18 08:00 Pulse 99 06/30/18 08:00 Resp 18 06/30/18 08:00 BP 138/77 06/30/18 08:00 Pulse Ox 97 06/30/18 08:00 Orthostatic Blood Pressure [ 70/46 Standing] Orthostatic Blood Pressure [ 100/57 Sitting] Orthostatic Blood Pressure [ 106/63 Supine] Weight - Most Recent: 154 lb 9.6 oz Lab Results - Last 24 hrs: Laboratory Results - last 24 hr 06/30/18 06/30/18 06/30/18 Range/Units 07:17 11:46 14:33 POC Glucose 136 H 258 H 147 H (75-105) mg/dl Med Orders - Current: Current Medications Discontinued Medications Apixaban (Eliquis) 2.5 mg PO BID [facility] Last Admin: 06/30/18 07:49 Dose: 2.5 mg Diltiazem HCl (Cardizem Cd) 180 mg PO DAILY [facility] Enoxaparin Sodium (Lovenox) 60 mg SUBCUT 1600 [facility] Last Admin: 06/25/18 17:19 Dose: 60 mg Insulin Aspart (Novolog) 0 unit SUBCUT WITHMEALSANDBED [facility]; Protocol Last Admin: 06/27/18 07:37 Dose: 2 units Insulin Aspart (Novolog) 15 unit SUBCUT ONETIME ONE Stop: 06/25/18 17:06 Last Admin: 06/25/18 17:19 Dose: 15 units Insulin Aspart (Novolog) 0 unit SUBCUT BID@1200,1730 [facility]; Protocol Last Admin: 06/27/18 12:37 Dose: Not Given Insulin Aspart (Novolog) 0 unit SUBCUT BID@1200,1730 [facility]; Protocol Last Admin: 06/29/18 18:00 Dose: 5 units Insulin Aspart (Novolog) Confirm Administered Dose 3,000 unit .ROUTE .STK-MED ONE Stop: 06/30/18 12:08 Insulin Glargine (Lantus) 30 unit SUBCUT BEDTIME [facility] Last Admin: 06/26/18 20:53 Dose: 30 units Insulin Glargine (Lantus) 20 unit SUBCUT BEDTIME [facility] Last Admin: 06/28/18 20:14 Dose: 20 units Insulin Human Isoph/Insulin Regular (Humulin 70-30) 0 units SUBCUT BIDAC [facility] Insulin Human Isoph/Insulin Regular (Humulin 70-30) 20 units SUBCUT 0730 [facility] Last Admin: 06/30/18 08:56 Dose: 20 units Insulin Human Isoph/Insulin Regular (Humulin 70-30) 10 units SUBCUT 1700 [facility] Last Admin: 06/29/18 17:59 Dose: 10 unit Losartan Potassium (Cozaar) 50 mg PO BEDTIME [facility] Last Admin: 06/28/18 20:08 Dose: 50 mg Losartan Potassium (Cozaar) 25 mg PO BEDTIME [facility] Last Admin: 06/29/18 19:52 Dose: 25 mg Metoprolol Tartrate (Lopressor) 25 mg PO Q12H [facility] Last Admin: 06/25/18 17:18 Dose: 25 mg Metoprolol Tartrate (Lopressor) 25 mg PO BID [facility] Last Admin: 06/26/18 09:53 Dose: 25 mg Metoprolol Tartrate (Lopressor) 37.5 mg PO BID [facility] Last Admin: 06/28/18 08:06 Dose: 37.5 mg Metoprolol Tartrate (Lopressor) 12.5 mg PO ONETIME ONE Stop: 06/26/18 08:59 Last Admin: 06/26/18 09:20 Dose: 12.5 mg Metoprolol Tartrate (Lopressor) Confirm Administered Dose 25 mg .ROUTE .STK-MED ONE Stop: 06/26/18 09:55 Last Admin: 06/26/18 09:53 Dose: Not Given Metoprolol Tartrate (Lopressor) 50 mg PO BID [facility] Last Admin: 06/30/18 07:49 Dose: 50 mg Metoprolol Tartrate (Lopressor) 12.5 mg PO ONETIME ONE Stop: 06/28/18 08:30 Last Admin: 06/28/18 09:47 Dose: 12.5 mg Metoprolol Tartrate (Lopressor) 25 mg PO BID [facility] Ondansetron HCl (Zofran) 4 mg IV Q4H PRN PRN Reason: Nausea/Vomiting Pantoprazole Sodium (Protonix Iv) 40 mg IVPUSH 0800 [facility] Last Admin: 06/30/18 07:54 Dose: 40 mg Sodium Chloride (Saline Flush) 10 ml FLUSH ASDIRECTED PRN PRN Reason: Keep Vein Open Tamsulosin HCl (Flomax) 0.4 mg PO DAILY [facility] Last Admin: 06/30/18 07:49 Dose: 0.4 mg Temazepam (Restoril) 15 mg PO BEDTIME PRN PRN Reason: Sleep Venlafaxine HCl (Effexor Xr) 150 mg PO DAILY [facility] Last Admin: 06/30/18 07:50 Dose: 150 mg - Exam General: Reports: Alert, Oriented HEENT: Reports: Mucous Membr. Moist/[place] Neck: Reports: Supple Lungs: Reports: Clear to Auscultation, Normal Respiratory Effort Cardiovascular: Reports: Irregular Rhythm GI/Abdominal Exam: Normal Bowel Sounds, Soft, Non-Tender Extremities: Normal Inspection, Pedal Edema (LLE 1+) Skin: Reports: Warm, Dry
== END 2018-06-30 11:44 | disposition swing bed (61) | DRG 310 ==
LOC: CC.FCMC 13:53 → CC.MS 13:53 → UNDOADMIN 15:29 → CC.MS 15:29
PROVIDERS: ADMIT Family Medicine; ATTEND Family Medicine
DX: I48.91 Unspecified atrial fibrillation (principal); N18.9 Chronic kidney disease, unspecified; I25.10 Atherosclerotic heart disease of native coronary artery without angina pectoris; F32.9 Major depressive disorder, single episode, unspecified; E78.5 Hyperlipidemia, unspecified; I12.9 Hypertensive chronic kidney disease with stage 1 through stage 4 chronic kidney disease, or unspecified chronic kidney disease; D51.0 Vitamin B12 deficiency anemia due to intrinsic factor deficiency; E11.22 Type 2 diabetes mellitus with diabetic chronic kidney disease; E55.9 Vitamin D deficiency, unspecified; N28.9 Disorder of kidney and ureter, unspecified; Z79.4 Long term (current) use of insulin; Z79.899 Other long term (current) drug therapy; Z95.1 Presence of aortocoronary bypass graft; Z87.891 Personal history of nicotine dependence; R53.1 Weakness; R60.0 Localized edema
CPT/HCPCS: 36415; 74176; 80048; 80053; 81001; 82962; 83880; 84484; 85025; 86140; 93005; 93306; A9270-GY; C9113; J1650; J1815-GY

== ENCOUNTER 2018-06-30 10:35 | Inpatient (IN) | payer MEDICARE, BC ==
[2018-06-30] MEDS ORDERED: Temazepam 15 MG Cap PO PRN (12:42)
[2018-06-30] MEDS ORDERED: Sodium Chloride 0.9% 10 ML Syringe FLUSH PRN ×2 (12:42)
[2018-06-30] MEDS: Ondansetron 4 MG/2 ML SDV IV PRN (14:38)
[2018-06-30] MEDS: Insulin NPH/Insulin Regular,Human 70-30 100 Units/ML 10 ML Vial SUBCUT SCH (17:58)
[2018-06-30] MEDS: Apixaban 5 MG Tab PO SCH (20:40)
[2018-06-30] MEDS: Losartan 25 MG Tab PO SCH (20:41)
[2018-06-30] MEDS: Metoprolol Tartrate 25 MG Tab PO SCH (20:41)
[2018-07-01] MEDS: Apixaban 5 MG Tab PO SCH ×2 (07:33→19:38)
[2018-07-01] MEDS: Venlafaxine 75 MG Cap.ER PO SCH (07:33)
[2018-07-01] MEDS: Diltiazem 180 MG Cap.CD PO SCH (07:34)
[2018-07-01] MEDS: Metoprolol Tartrate 25 MG Tab PO SCH ×2 (07:34→19:38)
[2018-07-01] MEDS: Tamsulosin 0.4 MG Cap.ER PO SCH (07:34)
[2018-07-01] MEDS: Insulin NPH/Insulin Regular,Human 70-30 100 Units/ML 10 ML Vial SUBCUT SCH ×2 (07:40→17:06)
[2018-07-01] MEDS: Pantoprazole 40 MG Vial IVPUSH SCH (07:41)
[2018-07-01] MEDS ORDERED: Acetaminophen 325 MG Tab PO PRN (08:22)
[2018-07-01] MEDS: Losartan 25 MG Tab PO SCH (19:39)
[2018-07-02] MEDS: Insulin NPH/Insulin Regular,Human 70-30 100 Units/ML 10 ML Vial SUBCUT SCH ×2 (07:53→17:16)
[2018-07-02] MEDS: Tamsulosin 0.4 MG Cap.ER PO SCH (07:55)
[2018-07-02] MEDS: Venlafaxine 75 MG Cap.ER PO SCH (07:55)
[2018-07-02] MEDS: Diltiazem 180 MG Cap.CD PO SCH (07:55)
[2018-07-02] MEDS: Metoprolol Tartrate 25 MG Tab PO SCH (07:55)
[2018-07-02] MEDS: Pantoprazole 40 MG Vial IVPUSH SCH (07:56)
[2018-07-02] MEDS: Apixaban 5 MG Tab PO SCH ×2 (07:56→19:40)
[2018-07-02 19:55] VITALS: BP 122/60
[2018-07-02] MEDS ORDERED: Metoprolol Tartrate 25 MG Tab PO SCH (20:00)
--- NOTE | 2018-07-02 20:41 | PCM.PN ---
- General Info Date of Service: 07/02/18 Admission Dx/Problem (Free Text): Atrial Fib with RVR Syncope Functional Status: Reports: Pain Controlled, Tolerating Diet, Ambulating - Review of Systems General: Denies: Weakness, Fatigue HEENT: Reports: No Symptoms Pulmonary: Denies: Shortness of Breath, Cough Cardiovascular: Reports: Lightheadedness. Denies: Chest Pain, Edema Gastrointestinal: Denies: Abdominal Pain, Nausea, Vomiting Genitourinary: Reports: No Symptoms Musculoskeletal: Reports: No Symptoms Neurological: Reports: Syncope - Patient Data Vitals - Most Recent: Last Vital Signs Temp 96.9 F 07/02/18 19:54 Pulse 52 L 07/02/18 19:54 Resp 20 07/02/18 19:54 BP 122/60 07/02/18 19:54 Pulse Ox 100 07/02/18 19:54 Orthostatic Blood Pressure [ 72/42 Standing] Orthostatic Blood Pressure [ 116/47 Sitting] Orthostatic Blood Pressure [ 112/53 Supine] Weight - Most Recent: 155 lb 1.6 oz Lab Results Last 24 Hours: Laboratory Results - last 24 hr 07/01/18 07/02/18 07/02/18 Range/Units 20:59 04:16 07:05 POC Glucose 335 H 212 H (75-105) mg/dl Troponin I 0.024 (0.00-0.06) ng/mL 07/02/18 07/02/18 07/02/18 Range/Units 07:08 11:25 17:10 POC Glucose 284 H 453 H* 330 H (75-105) mg/dl Troponin I (0.00-0.06) ng/mL Med Orders - Current: Current Medications Acetaminophen (Tylenol) 650 mg PO Q6H PRN PRN Reason: Pain Apixaban (Eliquis) 2.5 mg PO BID [facility] Last Admin: 07/02/18 19:40 Dose: 2.5 mg Diltiazem HCl (Cardizem Cd) 180 mg PO DAILY [facility] Last Admin: 07/02/18 07:55 Dose: 180 mg Insulin Aspart (Novolog) 0 unit SUBCUT BID@1200,1730 [facility]; Protocol Last Admin: 07/02/18 17:15 Dose: 4 units Insulin Human Isoph/Insulin Regular (Humulin 70-30) 20 units SUBCUT 0730 [facility] Last Admin: 07/02/18 07:53 Dose: 20 units Insulin Human Isoph/Insulin Regular (Humulin 70-30) 10 units SUBCUT 1700 [facility] Last Admin: 07/02/18 17:16 Dose: 10 units Losartan Potassium (Cozaar) 25 mg PO BEDTIME [facility] Last Admin: 07/01/18 19:39 Dose: 25 mg Metoprolol Tartrate (Lopressor) 12.5 mg PO BID [facility] Last Admin: 07/02/18 19:41 Dose: 12.5 mg Ondansetron HCl (Zofran) 4 mg IV Q4H PRN PRN Reason: Nausea/Vomiting Last Admin: 06/30/18 14:38 Dose: 4 mg Pantoprazole Sodium (Protonix Iv) 40 mg IVPUSH 0800 [facility] Last Admin: 07/02/18 07:56 Dose: 40 mg Sodium Chloride (Saline Flush) 10 ml FLUSH ASDIRECTED PRN PRN Reason: Keep Vein Open Tamsulosin HCl (Flomax) 0.4 mg PO DAILY [facility] Last Admin: 07/02/18 07:55 Dose: 0.4 mg Temazepam (Restoril) 15 mg PO BEDTIME PRN PRN Reason: Sleep Venlafaxine HCl (Effexor Xr) 150 mg PO DAILY [facility] Last Admin: 07/02/18 07:55 Dose: 150 mg Discontinued Medications Metoprolol Tartrate (Lopressor) 25 mg PO BID [facility] Last Admin: 07/02/18 07:55 Dose: 25 mg Sodium Chloride (Saline Flush) 10 ml FLUSH ASDIRECTED PRN PRN Reason: Keep Vein Open - Exam General: Alert, Oriented HEENT: Mucous Membr. Moist/[place] Neck: Supple Lungs: Clear to Auscultation, Normal Respiratory Effort Cardiovascular: Irregular Rhythm GI/Abdominal Exam: Normal Bowel Sounds, Soft, Non-Tender Extremities: Normal Inspection, Pedal Edema (LLE 1+) Skin: Warm, Dry - Problem List & Annotations (1) Syncope SNOMED Code(s): 982004859 Code(s): R55 - SYNCOPE AND COLLAPSE Status: Acute Priority: High Current Visit: Yes (2) Atrial fibrillation with RVR SNOMED Code(s): 966149661300255 Code(s): I48.91 - UNSPECIFIED ATRIAL FIBRILLATION Status: Acute Priority : High Current Visit: Yes - Problem List Review Problem List Initiated/Reviewed/Updated: Yes - My Orders Last 24 Hours: My Active Orders 07/02/18 10:30 Orthostatic Vital Signs [RC] ASDIRECTED 07/02/18 20:00 Metoprolol Tartrate [Lopressor] 12.5 mg PO BID 07/02/18 20:28 Ready for Discharge [RC] PER UNIT ROUTINE 07/02/18 Dinner NPO After Midnight [Nothing per Oral After Midnight Diet] [DIET] - Assessment Assessment:: Atrial Fib with RVR Syncope - Plan Plan:: Patient feels good at rest. Does continue to vary between atrial fib and flutter. Rate is more controlled now in the 90s on low dose metoprolol, cardizem. Patient continues to have syncopal episodes despite medication adjustments. We have reduced metoprolol to 12.5 mg BID, Cardizem 180mg CD. He does continue to have orthostatic blood pressure concerns. Blood pressure drops to 70s/40s with rising. Describes as feeling off balance when becomes near syncopal. Heart rate drops to the 70s. Dr. Ramirez did contact Dr. Moeller about patient concerns. Does feel patient needs cardioversion due to syncope concerns. Will arrange transfer in am for procedure and ROXANNE. Patient and son aware.
[2018-07-03] MEDS: Ondansetron 4 MG/2 ML SDV IV PRN (05:35)
--- NOTE | 2018-07-05 21:16 | PCM.DCSUM1 ---
Discharge Summary - Hospital Course Free Text/Narrative:: Patient initially admitted to acute care with complaints of ongoing dizziness, nausea at times. Noted to be in atrial fib with RVR. Admitted and started on oral metoprolol. Did have difficulty controlling rate so ultimately metoprolol was increased to 50 mg BID. He had a syncopal episode x1, felt to be orthostatic in nature so metoprolol was decreased. Transferred to swing bed for ongoing monitoring of rhythm/rate and Physical therapy for strengthening. Diagnosis: Stroke: No Modified Kiran Scale: No Symptoms at All Modified Kiran Scale Score: 0 - Discharge Data Discharge Date: 07/03/18 Discharge Disposition: DC/Tfer to Acute Hospital 02 Condition: Fair - Discharge Diagnosis/Problem(s) (1) Syncope SNOMED Code(s): 143973970 ICD Code: R55 - SYNCOPE AND COLLAPSE Status: Acute Priority: High (2) Atrial fibrillation with RVR SNOMED Code(s): 307070261466303 ICD Code: I48.91 - UNSPECIFIED ATRIAL FIBRILLATION Status: Acute Priority : High - Patient Summary/Data Complications: syncope Consults: Consultations 06/30/18 12:42 Consult to Physical Therapy [PT Evaluation and Treatment] [CONS] Routine Hospital Course: Patient has continued to have issues with orthostatic changes and syncope despite making medication adjustments to control the rate of his atrial fib. We did decrease metoprolol to 12.5 mg BID and added Cardizem but patient continues to become lightheaded with orthostatic blood pressure changes when up and ambulating or exerting himself more than [address] Ramirez did contact Dr. Moeller to discuss care and was felt patient may need cardioversion and a ROXANNE. Arrangements made with DR. Clayton, hospitalist at [facility], to accept the patient in transfer for more definitive cardiac intervention. - Patient Instructions Diet: NPO Other/Special Instructions: Transfer per EMS to [facility]. Accepting physician Dr. Clayton. Dr. Moeller aware of symptoms and concerns as well. - Discharge Plan *PRESCRIPTION DRUG MONITORING PROGRAM REVIEWED*: No *COPY OF PRESCRIPTION DRUG MONITORING REPORT IN PATIENT SHARIF: No Home Medications: Home Meds Ascorbate Calcium [Vitamin C] 500 mg PO DAILY 06/18/18 [History] Cholecalciferol (Vitamin D3) [Vitamin D3] 1,000 units PO DAILY 06/18/18 [History ] Cinnamon Bark [Cinnamon] 1,000 mg PO DAILY 06/18/18 [History] Ibuprofen [Advil] 400 mg PO DAILY PRN 06/18/18 [History] Losartan Potassium 50 mg PO BEDTIME 06/18/18 [History] Magnesium Oxide [Magnesium] 400 mg PO DAILY 06/18/18 [History] Piroxicam 20 mg PO BEDTIME 06/18/18 [History] Tamsulosin HCl 0.4 mg PO DAILY 06/18/18 [History] Venlafaxine [Venlafaxine HCl ER] 150 mg PO DAILY 06/18/18 [History] Vitamin B Complex 1 cap PO DAILY 06/18/18 [History] Ezetimibe/Simvastatin [Vytorin 10-20 mg Tablet] 0.5 tab PO DAILY 06/19/18 [ History] Insulin Glarg,Human.Rec.Analog [Lantus] 30 unit SUBCUT BEDTIME #10 ml 06/21/18 [ Rx] Calcium Carbonate/Vitamin D3 [Calcium 500 mg Chewable Tablet] 1 tab PO DAILY 04/03 [History] Furosemide 1 tab PO DAILY 06/25/18 [History] amLODIPine Besylate [Amlodipine Besylate] 1 tab PO DAILY 06/25/18 [History] - Discharge Summary/Plan Comment DC Time >30 min.: No - General Info Date of Service: 07/03/18 Admission Dx/Problem (Free Text: Atrial Fib with RVR Syncope Functional Status: Reports: Pain Controlled, Tolerating Diet. Denies: Ambulating - Review of Systems General: Reports: Weakness, Fatigue HEENT: Reports: No Symptoms Pulmonary: Denies: Shortness of Breath, Cough Cardiovascular: Reports: Lightheadedness. Denies: Chest Pain, Edema Gastrointestinal: Denies: Abdominal Pain, Nausea, Vomiting Genitourinary: Reports: No Symptoms Musculoskeletal: Reports: No Symptoms Neurological: Reports: Syncope, Weakness - Patient Data Vitals - Most Recent: Last Vital Signs Temp 96.9 F 07/02/18 19:54 Pulse 52 L 07/02/18 19:54 Resp 20 07/02/18 19:54 BP 122/60 07/02/18 19:54 Pulse Ox 100 07/02/18 19:54 Orthostatic Blood Pressure [ 72/42 Standing] Orthostatic Blood Pressure [ 116/47 Sitting] Orthostatic Blood Pressure [ 112/53 Supine] Weight - Most Recent: 155 lb 1.6 oz Med Orders - Current: Current Medications Discontinued Medications Acetaminophen (Tylenol) 650 mg PO Q6H PRN PRN Reason: Pain Apixaban (Eliquis) 2.5 mg PO BID [facility] Last Admin: 07/02/18 19:40 Dose: 2.5 mg Diltiazem HCl (Cardizem Cd) 180 mg PO DAILY [facility] Last Admin: 07/02/18 07:55 Dose: 180 mg Insulin Aspart (Novolog) 0 unit SUBCUT BID@1200,1730 [facility]; Protocol Last Admin: 07/02/18 17:15 Dose: 4 units Insulin Human Isoph/Insulin Regular (Humulin 70-30) 20 units SUBCUT 0730 [facility] Last Admin: 07/02/18 07:53 Dose: 20 units Insulin Human Isoph/Insulin Regular (Humulin 70-30) 10 units SUBCUT 1700 [facility] Last Admin: 07/02/18 17:16 Dose: 10 units Losartan Potassium (Cozaar) 25 mg PO BEDTIME [facility] Last Admin: 07/01/18 19:39 Dose: 25 mg Metoprolol Tartrate (Lopressor) 25 mg PO BID [facility] Last Admin: 07/02/18 07:55 Dose: 25 mg Metoprolol Tartrate (Lopressor) 12.5 mg PO BID [facility] Last Admin: 07/02/18 19:41 Dose: 12.5 mg Ondansetron HCl (Zofran) 4 mg IV Q4H PRN PRN Reason: Nausea/Vomiting Last Admin: 07/03/18 05:35 Dose: 4 mg Pantoprazole Sodium (Protonix Iv) 40 mg IVPUSH 0800 [facility] Last Admin: 07/02/18 07:56 Dose: 40 mg Sodium Chloride (Saline Flush) 10 ml FLUSH ASDIRECTED PRN PRN Reason: Keep Vein Open Sodium Chloride (Saline Flush) 10 ml FLUSH ASDIRECTED PRN PRN Reason: Keep Vein Open Tamsulosin HCl (Flomax) 0.4 mg PO DAILY [facility] [place] Last Admin: 07/02/18 07:55 Dose: 0.4 mg Temazepam (Restoril) 15 mg PO BEDTIME PRN PRN Reason: Sleep Venlafaxine HCl (Effexor Xr) 150 mg PO DAILY [facility] [place] Last Admin: 07/02/18 07:55 Dose: 150 mg - Exam General: Reports: Alert, Oriented HEENT: Reports: Mucous Membr. Moist/[place] Neck: Reports: Supple Lungs: Reports: Clear to Auscultation, Normal Respiratory Effort Cardiovascular: Reports: Irregular Rhythm GI/Abdominal Exam: Normal Bowel Sounds, Soft, Non-Tender Extremities: Normal Inspection, No Pedal Edema Skin: Reports: Warm, Dry Neurological: Reports: No New Focal Deficit
== END 2018-07-03 05:40 | DRG 310 ==
LOC: CC.MS 10:35 → UNDOADMIN 11:55
PROVIDERS: ADMIT Family Medicine; ATTEND Family Medicine
DX: I48.91 Unspecified atrial fibrillation (principal); I48.92 Unspecified atrial flutter; Z79.01 Long term (current) use of anticoagulants; Z91.81 History of falling; R53.1 Weakness; R11.0 Nausea; I95.1 Orthostatic hypotension; Z79.4 Long term (current) use of insulin; Z79.899 Other long term (current) drug therapy
CPT/HCPCS: 36415; 70450; 80048; 82962; 84484; 85025; 86140; 93005; 93880; 97110-GP; 97162-GP; 97530-GP; A9270-GY; C9113; J2405

== ENCOUNTER 2018-07-22 14:48 | Emergency (ER) | payer MEDICARE, BC ==
[2018-07-22 15:05] VITALS: BP 143/60
[2018-07-22] MEDS: Lidocaine 1% 20 ML MDV INJECT ONE (15:17)
--- NOTE | 2018-07-22 15:32 | EDM.PDOC ---
ED HPI GENERAL MEDICAL PROBLEM - General Chief Complaint: Laceration Stated Complaint: laceration above right eye, nausea Time Seen by Provider: 07/22/18 15:21 Source of Information: Reports: Patient History Limitations: Reports: No Limitations - History of Present Illness INITIAL COMMENTS - FREE TEXT/NARRATIVE: Pt fell in his bathroom this AM when he was in a hurry. He denied any LOC, or dizziness. He states that he has been more nauseated recently and had dry heaves last night. Continues to be nauseated today. Has been following with several specialists and cardiology in [place] for recent external defibrillator. Does have appt to see them again on Friday. Also sees nephrology for Chronic kidney disease. States that he was walking into his bathroom this morning about 8 am and he tripped and fell. He denies tripping over the rug an feels that he tripped over his feet. He did hit his head on the bath tub and had a laceration above the right eye. He denies any blood loss. "I only saw one drop on the bathtub that's why I didn 't come in" Son came by this after noon and noted the laceration and brought him in. Due to him being on Eloquis a trauma code was called. Onset: Gradual Location: Reports: Face Quality: Reports: Ache - Related Data Allergies Allergy/AdvReac Type Severity Reaction Status Date / Time No Known Allergies Allergy Verified 07/22/18 15:05 Home Meds: Home Meds Ascorbate Calcium [Vitamin C] 500 mg PO DAILY 06/18/18 [History] Cinnamon Bark [Cinnamon] 4,000 mg PO DAILY 06/18/18 [History] Magnesium Oxide [Magnesium] 500 mg PO DAILY 06/18/18 [History] Tamsulosin HCl 0.4 mg PO DAILY 06/18/18 [History] Venlafaxine [Venlafaxine HCl ER] 150 mg PO DAILY 06/18/18 [History] Vitamin B Complex 1 cap PO DAILY 06/18/18 [History] Calcium Carbonate/Vitamin D3 [Calcium 500 mg Chewable Tablet] 1 tab PO DAILY 04/03 [History] Apixaban [Eliquis] 5 mg PO BID 07/22/18 [History] Carvedilol 6.25 mg PO BID 07/22/18 [History] Insulin Glarg,Human.Rec.Analog [Lantus] 10 unit SUBCUT BEDTIME 07/22/18 [History ] Lisinopril 20 mg PO DAILY 07/22/18 [History] Simvastatin 10 mg PO DAILY 07/22/18 [History] SitaGLIPtin [Januvia] 100 mg PO DAILY 07/22/18 [History] amLODIPine Besylate [Norvasc] 10 mg PO BEDTIME 07/22/18 [History] glipiZIDE [Glipizide Xl] 10 mg PO DAILY 07/22/18 [History] metFORMIN [Glucophage] 1,000 mg PO BID 07/22/18 [History] Past Medical History Cardiovascular History: Reports: CAD, High Cholesterol, Hypertension Genitourinary History: Reports: BPH, Other (See Below) Other Genitourinary History: renal insufficiency Musculoskeletal History: Reports: Arthritis Psychiatric History: Reports: Depression Endocrine/Metabolic History: Reports: Diabetes, Type II Hematologic History: Reports: Anemia - Past Surgical History Cardiovascular Surgical History: Reports: Coronary Artery Bypass Social & Family History - Family History Family Medical History: Noncontributory - Caffeine Use Caffeine Use: Reports: Tea - Living Situation & Occupation Living situation: Reports: , Alone Occupation: Retired ED ROS GENERAL - Review of Systems Review Of Systems: See Below Constitutional: Reports: Weakness HEENT: Denies: No Symptoms Respiratory: Denies: No Symptoms Cardiovascular: Reports: Other (Does have an external defibrillator on.). Denies: No Symptoms GI/Abdominal: Reports: Nausea Skin: Reports: Wound (above the right eyebrow.) Neurological: Denies: Dizziness, Headache ED EXAM, SKIN/RASH Exam: See Below Text/Narrative:: Trauma Code Airway -open breathing- without distress circulation- no bleeding noted deformity- laceration to right forehead above the eyebrow, No other deformities noted. exposed- yes GCS= 15 Exam Limited By: No Limitations General Appearance: Alert, WD/WN, Mild Distress Eye Exam: Bilateral Eye: PERRL Ears: Normal External Exam, Normal Canal, Normal TMs Nose: Normal Inspection, No Blood Throat/Mouth: Normal Inspection, Normal Oropharynx, Normal Voice, No Airway Compromise Head: Atraumatic, Normocephalic Neck: Normal Inspection, Supple, Non-Tender, Full Range of Motion Respiratory/Chest: No Respiratory Distress, Lungs Clear, Normal Breath Sounds, Chest Non-Tender Cardiovascular: Normal Peripheral Pulses, Regular Rate, Rhythm, No Edema GI/Abdominal: Normal Bowel Sounds, Soft Back Exam: Normal Inspection, Full Range of Motion Extremities: Normal Inspection, Normal Range of Motion, Normal Capillary Refill Neurological: Alert, Oriented, CN II-XII Intact, Normal Cognition, No Motor/ Sensory Deficits Psychiatric: Normal Affect, Normal Mood Skin: Warm, Dry, Wound/Incision (3.2 cm laceration noted above the right eyebrow. No bleeding noted from the area.) Location, Skin: Face (above the right eyebrow.) ED SKIN PROCEDURES - Laceration/Wound Repair Right Lateral Forehead Lac/Wound length In cm: 3.2 Appearance: Linear Local Anesthesia - Lidocaine (Xylocaine): 1% Plain Local Anesthetic Volume: 2cc Skin Prep: Other (sure clens) Exploration/Debridement/Repair: In a Bloodless Field Closed with: Sutures Suture Size: other (5-0) # of Sutures: 5 Suture Type: Nylon, Interrupted, Simple Tetanus Status Addressed: Yes Complications: No Course - Vital Signs Last Recorded V/S: Last Vital Signs Temp 97.4 F 07/22/18 14:55 Pulse 75 07/22/18 14:55 Resp 20 07/22/18 14:55 BP 143/60 H 07/22/18 14:55 Pulse Ox 93 L 07/22/18 14:55 - Orders/Labs/Meds Labs: Laboratory Tests 07/22/18 07/22/18 07/22/18 Range/Units 15:13 15:13 15:13 WBC 8.4 (5.0-10.0) 10^3/uL RBC 3.68 L (4.50-6.00) 10^6/uL Hgb 11.0 L (14.0-18.0) g/dL Hct 33.8 L (40.0-54.0) % MCV 91.8 (82.0-94.0) fL MCH 29.9 (27.0-32.0) pg MCHC 32.5 L (33.0-38.0) g/dL RDW Coeff of Alisson 14.4 (11.0-15.0) % Plt Count 379 (150-400) 10^3/uL Neut % (Auto) 76.6 (35-85) % Lymph % (Auto) 15.6 (10-55) % [place] % (Auto) 7.4 (0-16) % Eos % (Auto) 0.2 (0-5) % Baso % (Auto) 0.2 (0-3) % Neut # (Auto) 6.43 (1.80-7.00) 10^3/uL Lymph # (Auto) 1.31 (1.00-4.80) 10^3/uL [place] # (Auto) 0.62 (0.00-0.80) 10^3/uL Eos # (Auto) 0.02 (0.00-0.45) 10^3/uL Baso # (Auto) 0.02 10^3/uL PT 11.6 (9.7-12.3) SEC INR 1.13 (0.92-1.18) Sodium 135 L (136-145) mEq/L Potassium 5.3 H (3.5-5.0) mEq/L Chloride 98 (98-106) mEq/L Carbon Dioxide 24 (21-32) mmol/L BUN 46 H D (7-18) mg/dL Creatinine 2.5 H (0.7-1.3) mg/dL Est Cr Clr Drug Dosing 21.66 mL/min Estimated GFR (MDRD) 25 L (>=60) mL/min Glucose 196 H (75-99) mg/dL Calcium 9.5 (8.4-10.1) mg/dL Total Bilirubin 0.4 (0.0-1.0) mg/dL AST 16 (15-37) U/L ALT 16 (12-78) U/L Alkaline Phosphatase 85 (46-116) U/L Total Protein 6.6 (6.4-8.2) g/dL Albumin 2.8 L (3.4-5.0) g/dL Amylase 48 (25-115) U/L Meds: Medications Discontinued Medications Generic Name Dose Route Start Last Admin Trade Name Freq PRN Reason Stop Dose Admin Diphtheria/Tetanus/Acell Pertussis 0.5 ml 07/22/18 15:50 07/22/18 15:56 Adacel IM 07/22/18 15:51 0.5 ml .ONCE ONE Administration Lidocaine HCl Confirm 07/22/18 15:17 07/22/18 15:46 Xylocaine 1% Administered 07/22/18 15:18 Not Given Dose 20 ml .ROUTE .STK-MED ONE Lidocaine HCl 20 ml 07/22/18 15:17 07/22/18 15:17 Xylocaine 1% INJECT 07/22/18 15:18 20 ml ONETIME ONE Administration Neomycin/Polymyxin/Bacitracin 1 each 07/22/18 15:46 07/22/18 15:56 Triple Antibiotic Oint TOP 07/22/18 15:47 1 each ONETIME ONE Administration - Re-Assessments/Exams Free Text/Narrative Re-Assessment/Exam: 15:45 Tolerated suturing without any concerns. GCS remains at 15. Report of normal CT as read by radiologist relayed to pt and son. Neuro checks remain stable. Departure - Departure Time of Disposition: 16:00 Disposition: Home, Self-Care 01 Condition: Good Clinical Impression: Nausea Laceration of head Qualifiers: Encounter type: initial encounter Location of open wound of head: other part of head Foreign body presence: without foreign body Qualified Code(s): S01.81XA - Laceration without foreign body of other part of head, initial encounter - Discharge Information *PRESCRIPTION DRUG MONITORING PROGRAM REVIEWED*: Not Applicable *COPY OF PRESCRIPTION DRUG MONITORING REPORT IN PATIENT SHARIF: Not Applicable Instructions: Laceration Care, Adult Referrals: Dangelo Ramirez MD [Primary Care Provider] - Forms: ED Department Discharge Additional Instructions: Sutures out in 10 days keep area clean and dry May shower as desired Recheck if any new concerns or new problems. Take Zofran ODT 8 mg orally as needed for nausea. - Problem List & Annotations (1) Laceration of head SNOMED Code(s): 852949460 Code(s): S01.91XA - LACERATION W/O FOREIGN BODY OF UNSP PART OF HEAD, INIT Status: Acute Priority: High Qualifiers: Encounter type: initial encounter Location of open wound of head: other part of head Foreign body presence: without foreign body Qualified Code(s): S01.81XA - Laceration without foreign body of other part of head, initial encounter (2) Nausea SNOMED Code(s): 395131729 Code(s): R11.0 - NAUSEA Status: Chronic Priority: Medium - Problem List Review Problem List Initiated/Reviewed/Updated: Yes - Assessment/Plan Plan: GCS remained at 15 throughout the stay. Will try the zofran for the nausea needs to keep appt with cardiology to have meds adjusted.
[2018-07-22] MEDS: Lidocaine 1% 20 ML MDV ONE (15:46)
[2018-07-22] MEDS: Diphtheria,Pertussis(Acell),Tetanus Vaccine 0.5 ML Syringe IM ONE (15:56)
[2018-07-22] MEDS: Bacitracin/Neomycin/Polymyxin B Oint 0.9 GM U/D Packet TOP ONE (15:56)
== END 2018-07-22 16:05 | disposition home or self-care (01) ==
LOC: CC.ED 14:48
DX: S01.81XA Laceration without foreign body of other part of head, initial encounter (principal); E78.00 Pure hypercholesterolemia, unspecified; I25.10 Atherosclerotic heart disease of native coronary artery without angina pectoris; I10 Essential (primary) hypertension; F32.9 Major depressive disorder, single episode, unspecified; E11.9 Type 2 diabetes mellitus without complications; Z79.899 Other long term (current) drug therapy; Z79.4 Long term (current) use of insulin; W18.30XA Fall on same level, unspecified, initial encounter; Y92.002 Bathroom of unspecified non-institutional (private) residence as the place of occurrence of the external cause; Z79.01 Long term (current) use of anticoagulants
CPT/HCPCS: 12013; 36415; 70450; 80053; 82150; 85025; 85610; 90471; 90715; 99283; 99284

== ENCOUNTER 2018-09-14 12:31 | Observation (INO) | payer MEDICARE, BC ==
[2018-09-14 13:03] VITALS: BP 119/64
--- NOTE | 2018-09-14 13:51 | EDM.PDOC ---
ED HPI GENERAL MEDICAL PROBLEM - General Chief Complaint: General Stated Complaint: KEEP FALLING DOWN Time Seen by Provider: 09/14/18 13:00 Source of Information: Reports: Patient History Limitations: Reports: No Limitations - History of Present Illness INITIAL COMMENTS - FREE TEXT/NARRATIVE: Patient presents to the ER Onset: Gradual Duration: Day(s):, Intermittent Location: Reports: Generalized Associated Symptoms: Reports: Malaise. Denies: Confusion, Chest Pain, Cough, Nausea/Vomiting, Shortness of Breath, Weakness Right Shoulder Pain Score (Numeric/FACES): 1 - Related Data Allergies Allergy/AdvReac Type Severity Reaction Status Date / Time No Known Allergies Allergy Verified 09/14/18 12:39 Home Meds: Home Meds Ascorbate Calcium [Vitamin C] 500 mg PO DAILY 06/18/18 [History] Magnesium Oxide [Magnesium] 500 mg PO DAILY 06/18/18 [History] Tamsulosin HCl 0.4 mg PO DAILY 06/18/18 [History] Venlafaxine [Venlafaxine HCl ER] 150 mg PO DAILY 06/18/18 [History] Apixaban [Eliquis] 5 mg PO BID 07/22/18 [History] Carvedilol 6.25 mg PO DAILY 07/22/18 [History] Amiodarone [Cordarone] 200 mg PO DAILY 09/14/18 [History] Carvedilol 12 mg PO BEDTIME 09/14/18 [History] Insuln Asp Prot/Insulin Aspart [NovoLOG Mix 70-30] 12 units SQ BEDTIME 09/14/18 [History] Insuln Asp Prot/Insulin Aspart [NovoLOG Mix 70-30] 25 units SQ DAILY 09/14/18 [ History] Simvastatin 10 mg PO BEDTIME 09/14/18 [History] Past Medical History Cardiovascular History: Reports: CAD, High Cholesterol, Hypertension Genitourinary History: Reports: BPH, Other (See Below) Other Genitourinary History: renal insufficiency Musculoskeletal History: Reports: Arthritis Psychiatric History: Reports: Depression Endocrine/Metabolic History: Reports: Diabetes, Type II Hematologic History: Reports: Anemia - Past Surgical History Cardiovascular Surgical History: Reports: Coronary Artery Bypass Social & Family History - Family History Family Medical History: Noncontributory - Tobacco Use Smoking Status *Q: Former Smoker Used Tobacco, but Quit: Yes Month/Year Tobacco Last Used: 70Y.O - Caffeine Use Caffeine Use: Reports: Soda - Living Situation & Occupation Living situation: Reports: , Alone Occupation: Retired ED ROS GENERAL - Review of Systems Review Of Systems: See Below Constitutional: Reports: Weakness. Denies: Fever, Chills, Malaise, Decreased Appetite HEENT: Denies: Ear Pain, Throat Pain, Vertigo, Vision Change Respiratory: Denies: Shortness of Breath, Cough Cardiovascular: Reports: Edema, Lightheadedness. Denies: Chest Pain Endocrine: Reports: Fatigue GI/Abdominal: Denies: Abdominal Pain, Nausea, Vomiting : Reports: No Symptoms Musculoskeletal: Reports: No Symptoms Skin: Reports: No Symptoms Neurological: Reports: Syncope, Weakness ED EXAM, GENERAL - Physical Exam Exam: See Below Exam Limited By: No Limitations General Appearance: Alert, WD/WN, No Apparent Distress Eye Exam: Bilateral Eye: EOMI, PERRL Ears: Normal External Exam, Normal TMs Nose: Normal Inspection, Normal Mucosa, No Blood Throat/Mouth: Normal Inspection, Normal Oropharynx Head: Normocephalic Neck: Normal Inspection, Supple, Non-Tender Respiratory/Chest: No Respiratory Distress, Lungs Clear, Normal Breath Sounds Cardiovascular: Regular Rate, Rhythm GI/Abdominal: Normal Bowel Sounds, Soft, Non-Tender Extremities: Pedal Edema (2+ LLE) Neurological: Alert, Oriented Skin Exam: Warm, Dry Course - Vital Signs Last Recorded V/S: Last Vital Signs Temp 97.9 F 09/14/18 12:39 Pulse 83 09/14/18 13:03 Resp 18 09/14/18 13:03 BP 119/64 09/14/18 13:03 Pulse Ox 97 09/14/18 13:03 Orthostatic Blood Pressure [ 99/52 Standing] Orthostatic Blood Pressure [ 130/66 Sitting] Orthostatic Blood Pressure [ 140/70 Supine] - Orders/Labs/Meds Orders: Active Orders 24 hr Category Date Time Status Patient Status [ADT] Routine ADT 09/14/18 14:56 Active Cardiac Monitoring [RC] CONTINUOUS Care 09/14/18 14:56 Active EKG Documentation Completion [RC] ROUTINE Care 09/14/18 19:00 Active EKG Documentation Completion [RC] STAT Care 09/14/18 12:39 Inactive Oxygen Therapy [RC] PRN Care 09/14/18 14:56 Active Peripheral IV Care [RC] . DIRECTED Care 09/14/18 14:56 Active Up With Assistance [RC] ASDIRECTED Care 09/14/18 14:56 Active VTE/DVT Education [RC] PER UNIT ROUTINE Care 09/14/18 14:56 Active Vital Signs [RC] Q4H Care 09/14/18 14:56 Active Regular Diet [DIET] Diet 09/14/18 Dinner Active Shoulder Comp Rt [CR] Stat Exams 09/14/18 12:47 Taken BASIC METABOLIC PANEL,BMP [CHEM] AM Lab 09/15/18 05:11 Ordered CBC WITH AUTO DIFF [HEME] AM Lab 09/15/18 05:11 Ordered TROPONIN I [CHEM] AM Lab 09/15/18 05:11 Ordered TROPONIN I [CHEM] Timed Lab 09/14/18 19:00 Ordered Acetaminophen [Tylenol] Med 09/14/18 14:56 Ordered 650 mg PO Q4H PRN Ondansetron [Zofran ODT] Med 09/14/18 14:56 Ordered 4 mg PO Q4H PRN Sodium Chloride 0.9% [Normal Saline] 1,000 ml Med 09/14/18 14:56 Ordered IV ASDIRECTED Sodium Chloride 0.9% [Saline Flush] Med 09/14/18 14:56 Ordered 10 ml FLUSH ASDIRECTED PRN Peripheral IV Insertion Adult [OM.PC] Routine Oth 09/14/18 14:56 Ordered Resuscitation Status Routine Resus Stat 09/14/18 13:39 Ordered EKG 12 Lead [EK] AM Ther 09/15/18 05:11 Ordered EKG 12 Lead [EK] Routine Ther 09/14/18 12:49 Stop Req Medication Orders Acetaminophen (Tylenol) 650 mg PO Q4H PRN PRN Reason: Pain (Mild 1-3)/fever Amiodarone HCl (Cordarone) 200 mg PO DAILY NILS Apixaban (Eliquis) 5 mg PO BID NILS Carvedilol (Coreg) 6.25 mg PO BIDMEALS NILS Sodium Chloride (Normal Saline) 1,000 mls @ 75 mls/hr IV ASDIRECTED NILS Non-Formulary Medication (Insuln Asp Prot/Insulin Aspart [Novolog Mix 70-30]) 12 units SQ BEDTIME NILS Non-Formulary Medication (Insuln Asp Prot/Insulin Aspart [Novolog Mix 70-30]) 25 units SQ DAILY NILS Non-Formulary Medication (Magnesium Oxide [Magnesium]) 500 mg PO DAILY [facility] Non-Formulary Medication (Venlafaxine [Venlafaxine Hcl Er]) 150 mg PO DAILY [facility] Ondansetron HCl (Zofran Odt) 4 mg PO Q4H PRN PRN Reason: nausea, able to take PO Simvastatin (Zocor) 10 mg PO BEDTIME [facility] Sodium Chloride (Saline Flush) 10 ml FLUSH ASDIRECTED PRN PRN Reason: Keep Vein Open Tamsulosin HCl (Flomax) 0.4 mg PO DAILY [facility] Labs: Laboratory Tests 09/14/18 09/14/18 09/14/18 Range/Units 12:58 12:58 12:58 WBC 10.1 H (5.0-10.0) 10^3/uL RBC 3.75 L (4.50-6.00) 10^6/uL Hgb 11.7 L (14.0-18.0) g/dL Hct 35.4 L (40.0-54.0) % MCV 94.4 H (82.0-94.0) fL MCH 31.2 (27.0-32.0) pg MCHC 33.1 (33.0-38.0) g/dL RDW Coeff of Alisson 16.4 H (11.0-15.0) % Plt Count 246 (150-400) 10^3/uL Neut % (Auto) 83.6 (35-85) % Lymph % (Auto) 8.0 L (10-55) % [place] % (Auto) 8.1 (0-16) % Eos % (Auto) 0.2 (0-5) % Baso % (Auto) 0.1 (0-3) % Neut # (Auto) 8.41 H (1.80-7.00) 10^3/uL Lymph # (Auto) 0.81 L (1.00-4.80) 10^3/uL [place] # (Auto) 0.82 H (0.00-0.80) 10^3/uL Eos # (Auto) 0.02 (0.00-0.45) 10^3/uL Baso # (Auto) 0.01 10^3/uL PT 10.7 (9.7-12.3) SEC INR 1.04 (0.92-1.18) Sodium 131 L (136-145) mEq/L Potassium 5.0 (3.5-5.0) mEq/L Chloride 97 L (98-106) mEq/L Carbon Dioxide 27 (21-32) mmol/L BUN 34 H (7-18) mg/dL Creatinine 2.2 H (0.7-1.3) mg/dL Est Cr Clr Drug Dosing 24.61 mL/min Estimated GFR (MDRD) 29 L (>=60) mL/min Glucose 299 H D (75-99) mg/dL Calcium 9.2 (8.4-10.1) mg/dL Lactate Dehydrogenase 175 (100-190) U/L Creatine Kinase 181 (35-232) U/L Troponin I 0.273 H (0.00-0.06) ng/mL Meds: Medications Generic Name Dose Route Start Last Admin Trade Name Freq PRN Reason Stop Dose Admin Acetaminophen 650 mg 09/14/18 14:56 Tylenol PO Q4H PRN Pain (Mild 1-3)/fever Amiodarone HCl 200 mg 09/15/18 08:00 Cordarone PO DAILY [facility] Apixaban 5 mg 09/14/18 20:00 Eliquis PO BID NILS Carvedilol 6.25 mg 09/14/18 17:30 Coreg PO BIDMEALS [facility] Sodium Chloride 1,000 mls @ 75 mls/hr 09/14/18 14:56 Normal Saline IV ASDIRECTED NILS Non-Formulary Medication 12 units 09/14/18 20:00 Insuln Asp Prot/Insulin Aspart [Novolog Mix 70-30] SQ BEDTIME NILS Non-Formulary Medication 25 units 09/15/18 08:00 Insuln Asp Prot/Insulin Aspart [Novolog Mix 70-30] SQ DAILY NILS Non-Formulary Medication 500 mg 09/15/18 08:00 Magnesium Oxide [Magnesium] PO DAILY NILS Non-Formulary Medication 150 mg 09/15/18 08:00 Venlafaxine [Venlafaxine Hcl Er] PO DAILY NILS Ondansetron HCl 4 mg 09/14/18 14:56 Zofran Odt PO Q4H PRN nausea, able to take PO Simvastatin 10 mg 09/14/18 20:00 Zocor PO BEDTIME NILS Sodium Chloride 10 ml 09/14/18 14:56 Saline Flush FLUSH ASDIRECTED PRN Keep Vein Open Tamsulosin HCl 0.4 mg 09/15/18 08:00 Flomax PO DAILY NILS - Re-Assessments/Exams Free Text/Narrative Re-Assessment/Exam: 09/14/18 14: Lab results reviewed. Discussed history with patient, has had an ablation, echocardiogram. Currently has external defibrillator but patient denies any shock from this. Does not believe he has had an angiogram. Departure - Departure Time of Disposition: 14:00 Disposition: Refer to Observation Condition: Undetermined Clinical Impression: Near syncope - Discharge Information *PRESCRIPTION DRUG MONITORING PROGRAM REVIEWED*: No *COPY OF PRESCRIPTION DRUG MONITORING REPORT IN PATIENT SHARIF: No - Problem List & Annotations (1) Near syncope SNOMED Code(s): 082440339 Code(s): R55 - SYNCOPE AND COLLAPSE Status: Acute Priority: High Current Visit: Yes - Problem List Review Problem List Initiated/Reviewed/Updated: Yes - My Orders Last 24 Hours: My Active Orders 09/14/18 12:39 EKG Documentation Completion [RC] STAT 09/14/18 12:47 Shoulder Comp Rt [CR] Stat 09/14/18 12:49 EKG 12 Lead [EK] Routine 09/14/18 13:39 Resuscitation Status Routine 09/14/18 14:56 Patient Status [ADT] Routine Cardiac Monitoring [RC] CONTINUOUS Oxygen Therapy [RC] PRN Peripheral IV Care [RC] . DIRECTED Up With Assistance [RC] ASDIRECTED VTE/DVT Education [RC] PER UNIT ROUTINE Vital Signs [RC] Q4H Acetaminophen [Tylenol] 650 mg PO Q4H PRN Ondansetron [Zofran ODT] 4 mg PO Q4H PRN Sodium Chloride 0.9% [Normal Saline] 1,000 ml IV ASDIRECTED Sodium Chloride 0.9% [Saline Flush] 10 ml FLUSH ASDIRECTED PRN Peripheral IV Insertion Adult [OM.PC] Routine 09/14/18 19:00 EKG Documentation Completion [RC] ROUTINE TROPONIN I [CHEM] Timed 09/14/18 Dinner Regular Diet [DIET] 09/15/18 05:11 BASIC METABOLIC PANEL,BMP [CHEM] AM CBC WITH AUTO DIFF [HEME] AM TROPONIN I [CHEM] AM EKG 12 Lead [EK] AM - Assessment/Plan Admission H&P: Please use this note as an admission H&P Last 24 Hours: My Active Orders 09/14/18 12:39 EKG Documentation Completion [RC] STAT 09/14/18 12:47 Shoulder Comp Rt [CR] Stat 09/14/18 12:49 EKG 12 Lead [EK] Routine 09/14/18 13:39 Resuscitation Status Routine 09/14/18 14:56 Patient Status [ADT] Routine Cardiac Monitoring [RC] CONTINUOUS Oxygen Therapy [RC] PRN Peripheral IV Care [RC] . DIRECTED Up With Assistance [RC] ASDIRECTED VTE/DVT Education [RC] PER UNIT ROUTINE Vital Signs [RC] Q4H Acetaminophen [Tylenol] 650 mg PO Q4H PRN Ondansetron [Zofran ODT] 4 mg PO Q4H PRN Sodium Chloride 0.9% [Normal Saline] 1,000 ml IV ASDIRECTED Sodium Chloride 0.9% [Saline Flush] 10 ml FLUSH ASDIRECTED PRN Peripheral IV Insertion Adult [OM.PC] Routine 09/14/18 19:00 EKG Documentation Completion [RC] ROUTINE TROPONIN I [CHEM] Timed 09/14/18 Dinner Regular Diet [DIET] 09/15/18 05:11 BASIC METABOLIC PANEL,BMP [CHEM] AM CBC WITH AUTO DIFF [HEME] AM TROPONIN I [CHEM] AM EKG 12 Lead [EK] AM Assessment:: Near Syncope Plan: Admit to observation for serial cardiac enzymes and monitoring. Dr. Ramirez aware of admission and agrees with plan.
[2018-09-14] MEDS ORDERED: Sodium Chloride 0.9% 10 ML Syringe FLUSH PRN (14:56)
[2018-09-14] MEDS ORDERED: Sodium Chloride 0.9% 1,000 ML IV SCH (14:56)
[2018-09-14] MEDS ORDERED: Acetaminophen 325 MG Tab PO PRN (14:56)
[2018-09-14] MEDS ORDERED: Ondansetron 4 MG Tab.DIS PO PRN (14:56)
[2018-09-14] MEDS ORDERED: Carvedilol 6.25 MG Tab PO SCH (17:30)
--- NOTE | 2018-09-14 18:12 | PCM.DCSUM1 ---
Discharge Summary - Hospital Course Free Text/Narrative:: Patient presented to ER with concerns of increased falls again. Feels similar to past experience a few weeks ago. Starts to feel lightheaded, thinks he passes out yet somewhat remembers lowering to the ground. Did bump head slightly with one fall, no head pain on admission to ER. No trauma obtained. He has a history of orthostatic hypotension, atrial fib. Has had ablation. Is currently wearing an external defibrillator, has not released a charge during any of these falls. Cardiac work up in the ER was done, troponin indeterminate. Sodium low at 131. His EKG did show ST depression in inferiolateral leads. Orthostatic blood pressure changes noted in ER with drop while standing. Admitted for serial cardiac monitoring, IV fluids. Did discuss and compare previous EKG with Dr. Ramirez. Called and consulted with [facility] cardiology. Did recommend head CT as could be source of EKG changes. Also felt could be related to Amiodarone. [place] further work up for this could be accomplished by cardiology at [facility]. Agreed to accept the patient in transfer. Diagnosis: Stroke: No Modified [place] Scale: No Symptoms at All Modified Kiran Scale Score: 0 - Discharge Data Discharge Date: 09/14/18 Discharge Disposition: DC/Tfer to Acute Hospital 02 Condition: Good - Discharge Diagnosis/Problem(s) (1) Near syncope SNOMED Code(s): 747513988 ICD Code: R55 - SYNCOPE AND COLLAPSE Status: Acute Priority: High - Patient Summary/Data Complications: none - Patient Instructions Diet: Usual Diet as Tolerated Activity: As Tolerated Other/Special Instructions: Transfer to Dr. Weller to [facility] per [facility] ambulance - Discharge Plan *PRESCRIPTION DRUG MONITORING PROGRAM REVIEWED*: No *COPY OF PRESCRIPTION DRUG MONITORING REPORT IN PATIENT SHARIF: No Home Medications: Home Meds Ascorbate Calcium [Vitamin C] 500 mg PO DAILY 06/18/18 [History] Magnesium Oxide [Magnesium] 500 mg PO DAILY 06/18/18 [History] Tamsulosin HCl 0.4 mg PO DAILY 06/18/18 [History] Venlafaxine [Venlafaxine HCl ER] 150 mg PO DAILY 06/18/18 [History] Apixaban [Eliquis] 5 mg PO BID 07/22/18 [History] Carvedilol 6.25 mg PO DAILY 07/22/18 [History] Amiodarone [Cordarone] 200 mg PO DAILY 09/14/18 [History] Carvedilol 12 mg PO BEDTIME 09/14/18 [History] Insuln Asp Prot/Insulin Aspart [NovoLOG Mix 70-30] 12 units SQ BEDTIME 09/14/18 [History] Insuln Asp Prot/Insulin Aspart [NovoLOG Mix 70-30] 25 units SQ DAILY 09/14/18 [ History] Simvastatin 10 mg PO BEDTIME 09/14/18 [History] Forms: ED Department Discharge Referrals: Dangelo Ramirez MD [Primary Care Provider] - - Discharge Summary/Plan Comment DC Time >30 min.: Yes Discharge Summary/Plan Comment: Transfer to [facility] to Dr. Weller, hospitalist accepting patient. Patient aware and agrees with transfer. Time spent with patient discussing consult 15 minutes Time with arrangement for transfer 15 minutes Time for documentation 15 minutes. - General Info Date of Service: 09/14/18 Admission Dx/Problem (Free Text: Near Syncope Functional Status: Reports: Pain Controlled, Tolerating Diet, Ambulating - Review of Systems General: Reports: Weakness. Denies: Fatigue HEENT: Denies: Sinus Congestion, Sore Throat, Visual Changes Pulmonary: Denies: Shortness of Breath, Cough Cardiovascular: Reports: Lightheadedness. Denies: Chest Pain, Edema Gastrointestinal: Denies: Abdominal Pain, Nausea, Vomiting Genitourinary: Reports: No Symptoms Musculoskeletal: Reports: No Symptoms Skin: Reports: No Symptoms Neurological: Reports: No Symptoms - Patient Data Vitals - Most Recent: Last Vital Signs Temp 97.9 F 09/14/18 12:39 Pulse 83 09/14/18 13:03 Resp 18 09/14/18 13:03 BP 119/64 09/14/18 13:03 Pulse Ox 97 09/14/18 13:03 Orthostatic Blood Pressure [ 99/52 Standing] Orthostatic Blood Pressure [ 130/66 Sitting] Orthostatic Blood Pressure [ 140/70 Supine] Weight - Most Recent: 158 lb 4.8 oz Lab Results - Last 24 hrs: Laboratory Results - last 24 hr 09/14/18 09/14/18 09/14/18 Range/Units 12:58 12:58 12:58 WBC 10.1 H (5.0-10.0) 10^3/uL RBC 3.75 L (4.50-6.00) 10^6/uL Hgb 11.7 L (14.0-18.0) g/dL Hct 35.4 L (40.0-54.0) % MCV 94.4 H (82.0-94.0) fL MCH 31.2 (27.0-32.0) pg MCHC 33.1 (33.0-38.0) g/dL RDW Coeff of Alisson 16.4 H (11.0-15.0) % Plt Count 246 (150-400) 10^3/uL Neut % (Auto) 83.6 (35-85) % Lymph % (Auto) 8.0 L (10-55) % Bacon % (Auto) 8.1 (0-16) % Eos % (Auto) 0.2 (0-5) % Baso % (Auto) 0.1 (0-3) % Neut # (Auto) 8.41 H (1.80-7.00) 10^3/uL Lymph # (Auto) 0.81 L (1.00-4.80) 10^3/uL Bacon # (Auto) 0.82 H (0.00-0.80) 10^3/uL Eos # (Auto) 0.02 (0.00-0.45) 10^3/uL Baso # (Auto) 0.01 10^3/uL PT 10.7 (9.7-12.3) SEC INR 1.04 (0.92-1.18) Sodium 131 L (136-145) mEq/L Potassium 5.0 (3.5-5.0) mEq/L Chloride 97 L (98-106) mEq/L Carbon Dioxide 27 (21-32) mmol/L BUN 34 H (7-18) mg/dL Creatinine 2.2 H (0.7-1.3) mg/dL Est Cr Clr Drug Dosing 24.61 mL/min Estimated GFR (MDRD) 29 L (>=60) mL/min Glucose 299 H D (75-99) mg/dL Calcium 9.2 (8.4-10.1) mg/dL Magnesium (1.8-2.4) mg/dL Lactate Dehydrogenase 175 (100-190) U/L Creatine Kinase 181 (35-232) U/L Troponin I 0.273 H (0.00-0.06) ng/mL 09/14/18 Range/Units 14:38 WBC (5.0-10.0) 10^3/uL RBC (4.50-6.00) 10^6/uL Hgb (14.0-18.0) g/dL Hct (40.0-54.0) % MCV (82.0-94.0) fL MCH (27.0-32.0) pg MCHC (33.0-38.0) g/dL RDW Coeff of Alisson (11.0-15.0) % Plt Count (150-400) 10^3/uL Neut % (Auto) (35-85) % Lymph % (Auto) (10-55) % Bacon % (Auto) (0-16) % Eos % (Auto) (0-5) % Baso % (Auto) (0-3) % Neut # (Auto) (1.80-7.00) 10^3/uL Lymph # (Auto) (1.00-4.80) 10^3/uL Bacon # (Auto) (0.00-0.80) 10^3/uL Eos # (Auto) (0.00-0.45) 10^3/uL Baso # (Auto) 10^3/uL PT (9.7-12.3) SEC INR (0.92-1.18) Sodium (136-145) mEq/L Potassium (3.5-5.0) mEq/L Chloride (98-106) mEq/L Carbon Dioxide (21-32) mmol/L BUN (7-18) mg/dL Creatinine (0.7-1.3) mg/dL Est Cr Clr Drug Dosing mL/min Estimated GFR (MDRD) (>=60) mL/min Glucose (75-99) mg/dL Calcium (8.4-10.1) mg/dL Magnesium 1.9 (1.8-2.4) mg/dL Lactate Dehydrogenase (100-190) U/L Creatine Kinase (35-232) U/L Troponin I (0.00-0.06) ng/mL Med Orders - Current: Current Medications Discontinued Medications Acetaminophen (Tylenol) 650 mg PO Q4H PRN PRN Reason: Pain (Mild 1-3)/fever Amiodarone HCl (Cordarone) 200 mg PO DAILY [facility]IL[facility] Apixaban (Eliquis) 5 mg PO BID [facility] Carvedilol (Coreg) 6.25 mg PO BIDMEALS [facility] Sodium Chloride (Normal Saline) 1,000 mls @ 75 mls/hr IV ASDIRECTED [facility] Insulin Human Isoph/Insulin Regular (Humulin 70-30) 12 units SUBCUT BEDTIME [facility]IL[facility] Insulin Human Isoph/Insulin Regular (Humulin 70-30) 25 units SUBCUT DAILY [facility] Magnesium Oxide (Magnesium Oxide) 500 mg PO DAILY [facility] Ondansetron HCl (Zofran Odt) 4 mg PO Q4H PRN PRN Reason: nausea, able to take PO Simvastatin (Zocor) 10 mg PO BEDTIME [facility] Sodium Chloride (Saline Flush) 10 ml FLUSH ASDIRECTED PRN PRN Reason: Keep Vein Open Tamsulosin HCl (Flomax) 0.4 mg PO DAILY [facility] Venlafaxine HCl (Effexor Xr) 150 mg PO DAILY NIL[facility] - Exam General: Reports: Alert, Oriented HEENT: Reports: Mucous Membr. Moist/Tobias Neck: Reports: Supple Lungs: Reports: Clear to Auscultation, Normal Respiratory Effort Cardiovascular: Reports: Regular Rate, Regular Rhythm GI/Abdominal Exam: Normal Bowel Sounds, Soft, Non-Tender Extremities: Normal Inspection, No Pedal Edema Skin: Reports: Warm, Dry Neurological: Reports: No New Focal Deficit
[2018-09-14] MEDS ORDERED: Simvastatin 10 MG Tab PO SCH (20:00)
[2018-09-14] MEDS ORDERED: Apixaban 5 MG Tab PO SCH (20:00)
[2018-09-14] MEDS ORDERED: Insulin NPH/Insulin Regular,Human 70-30 100 Units/ML 10 ML Vial SUBCUT SCH (20:00)
[2018-09-15] MEDS ORDERED: Insulin NPH/Insulin Regular,Human 70-30 100 Units/ML 10 ML Vial SUBCUT SCH (08:00)
[2018-09-15] MEDS ORDERED: Venlafaxine 75 MG Cap.ER PO SCH (08:00)
[2018-09-15] MEDS ORDERED: Amiodarone 200 MG Tab PO SCH (08:00)
[2018-09-15] MEDS ORDERED: Tamsulosin 0.4 MG Cap.ER PO SCH (08:00)
== END 2018-09-14 15:20 ==
LOC: CC.ED 12:31 → SUPCPDRO 12:31 → CC.MS 13:39 → UNDOADMOB 13:45
PROVIDERS: ADMIT Physician Assistant Medical; ATTEND Family Medicine
DX: R55 Syncope and collapse (principal); I25.10 Atherosclerotic heart disease of native coronary artery without angina pectoris; I10 Essential (primary) hypertension; E11.9 Type 2 diabetes mellitus without complications; E78.00 Pure hypercholesterolemia, unspecified; N40.0 Benign prostatic hyperplasia without lower urinary tract symptoms; Z95.1 Presence of aortocoronary bypass graft; Z87.891 Personal history of nicotine dependence; Z79.01 Long term (current) use of anticoagulants; Z79.4 Long term (current) use of insulin; Z79.899 Other long term (current) drug therapy
CPT/HCPCS: 36415; 70450; 73030-RT; 80048; 82550; 83615; 83735; 84484; 85025; 85610; 93005; 99285-25

== ENCOUNTER 2024-10-26 14:48 | Inpatient (IN) | payer MEDICARE ==
[2024-10-26 15:26] LABS: BASOPHILS ABSOLUTE AUTO 0.01 10^3/uL (0.00-0.50); BASOPHILS PERCENT AUTO 0.3 % (0-1); EOSINOPHILS ABSOLUTE AUTO 0.02 10^3/uL (0.00-1.50); EOSINOPHILS PERCENT AUTO 0.6 % (0-6); HEMATOCRIT 31.3 % (42.0-52.0); HEMOGLOBIN 10.3 g/dL (14.0-18.0); IMMATURE GRAN ABSOLUTE AUTO 0.01 10^3/uL (0.00-0.49); IMMATURE GRAN PERCENT AUTO 0.3 % (0.0-4.9); LYMPHOCYTES ABSOLUTE AUTO 0.48 10^3/uL (0.60-5.00); LYMPHOCYTES PERCENT AUTO 13.9 % (24-44); MEAN CORPUSCULAR HEMOGLOBIN 28.4 pg (27.0-32.0); MEAN CORPUSCULAR HGB CONC 32.9 g/dL (32.0-36.0); MEAN CORPUSCULAR VOLUME 86.2 fL (83.0-97.0); MONOCYTES ABSOLUTE AUTO 0.55 10^3/uL (0.00-1.50); MONOCYTES PERCENT AUTO 15.9 % (0-10); NEUTROPHILS ABSOLUTE AUTO 2.38 x10^3/uL (1.80-8.00); PLATELET COUNT,PLT 223 10^3/uL (150-400); RED BLOOD CELL COUNT 3.63 x10^6/uL (4.50-6.00); WHITE BLOOD CELL COUNT,WBC 3.5 10^3/uL (4.0-11.0)
[2024-10-26 15:34] LABS: APPEARANCE,URINE CLOUDY (CLEAR); BILIRUBIN,URINE NEGATIVE (NEGATIVE); COLOR,URINE YELLOW (YELLOW); GLUCOSE,URINE 500 mg/dL (NEGATIVE); KETONES,URINE 15 mg/dL (NEGATIVE); LEUKOCYTE ESTERASE,URINE TRACE (NEGATIVE); NITRITE,URINE NEGATIVE (NEGATIVE); OCCULT BLOOD,URINE MODERATE (NEGATIVE); PH,URINE 5.5 (4.5-8.0); PROTEIN,URINE 30 mg/dL (NEGATIVE); UROBILINOGEN,URINE 0.2 EU/dL (0.2-1.0)
[2024-10-26 15:46] LABS: ALBUMIN 2.5 g/dL (3.4-5.0); BILIRUBIN TOTAL 0.8 mg/dL (0.0-1.0); C-REACTIVE PROTEIN 4.29 mg/dL (<=0.50); CREATININE 2.1 mg/dL (0.7-1.3); EST CRCL DRUG DOSING (CG) 24.62 mL/min; POTASSIUM,K 4.8 mEq/L (3.5-5.0); PROTEIN TOTAL,TP 6.6 g/dL (6.4-8.2)
[2024-10-26] MEDS ORDERED: Glucagon,Human Recombinant 1 MG Vial IM PRN ×3 (15:52→19:10)
[2024-10-26] MEDS ORDERED: 50% Dextrose in Water 50 ML Syringe IVPUSH PRN ×3 (15:52→19:10)
[2024-10-26] MEDS: Sodium Chloride 0.9% 500 ML IV SCH (15:54)
[2024-10-26 15:57] LABS: BACTERIA,URINE FEW /HPF (NOT SEEN); SQUAMOUS EPITHELIAL CELLS,UR NOT SEEN /HPF (NOT SEEN); WBC,URINE PACKED /HPF (0-5)
[2024-10-26] MEDS: Insulin Regular, Human 100 Units/ML 10 ML Vial SUBCUT STA (15:57)
[2024-10-26] MEDS: Levofloxacin/Dextrose 5%-Water 750 MG in Premix Bag 1 BAG IV ONE (16:07)
[2024-10-26] MEDS ORDERED: Ondansetron 4 MG Tab.DIS PO PRN (17:40)
[2024-10-26] MEDS ORDERED: Ondansetron 4 MG/2 ML SDV IV PRN (17:40)
[2024-10-26] MEDS ORDERED: Acetaminophen 650 MG Supp RECTAL PRN (17:40)
[2024-10-26] MEDS: Insulin Regular, Human 100 Units/ML 10 ML Vial SUBCUT SCH (18:03)
[2024-10-26] MEDS: Furosemide 40 MG/4 ML VIAL IVPUSH ONE (18:14)
[2024-10-26] MEDS: Insulin Regular, Human 100 Units/ML 10 ML Vial SUBCUT ONE (19:27)
[2024-10-26] MEDS: Carvedilol 6.25 MG Tab PO SCH (19:55)
[2024-10-26] MEDS: Apixaban 5 MG Tab PO SCH (19:56)
[2024-10-26] MEDS: Simvastatin 10 MG Tab PO SCH (19:56)
[2024-10-26] MEDS: Insulin NPH/Insulin Regular,Human 70-30 100 Units/ML 10 ML Vial SUBCUT SCH (20:02)
[2024-10-27] MEDS: Levothyroxine 125 MCG Tab PO SCH (05:59)
[2024-10-27] MEDS: Carvedilol 6.25 MG Tab PO SCH ×2 (07:59→17:19)
[2024-10-27] MEDS: Venlafaxine 75 MG Cap.ER PO SCH (08:00)
[2024-10-27] MEDS: Lactobacillus Rhamnosus GG (Probiotic) Cap PO SCH (08:00)
[2024-10-27] MEDS: Tamsulosin 0.4 MG Cap.ER PO SCH (08:01)
[2024-10-27] MEDS: Magnesium Oxide 400 MG Tab PO SCH (08:02)
[2024-10-27] MEDS: Furosemide 20 MG Tab PO SCH (08:02)
[2024-10-27 08:05] LABS: ALBUMIN 2.3 g/dL (3.4-5.0); BILIRUBIN TOTAL 0.7 mg/dL (0.0-1.0); C-REACTIVE PROTEIN 3.88 mg/dL (<=0.50); CALCIUM 9.6 mg/dL (8.4-10.1); CREATININE 2.1 mg/dL (0.7-1.3); EST CRCL DRUG DOSING (CG) 23.15 mL/min; POTASSIUM,K 5.1 mEq/L (3.5-5.0); PROTEIN TOTAL,TP 6.2 g/dL (6.4-8.2)
[2024-10-27 08:09] LABS: BASOPHILS ABSOLUTE AUTO 0.01 10^3/uL (0.00-0.50); BASOPHILS PERCENT AUTO 0.1 % (0-1); EOSINOPHILS ABSOLUTE AUTO 0.12 10^3/uL (0.00-1.50); EOSINOPHILS PERCENT AUTO 1.8 % (0-6); HEMOGLOBIN 11.8 g/dL (14.0-18.0); IMMATURE GRAN ABSOLUTE AUTO 0.02 10^3/uL (0.00-0.49); IMMATURE GRAN PERCENT AUTO 0.3 % (0.0-4.9); LYMPHOCYTES ABSOLUTE AUTO 1.01 10^3/uL (0.60-5.00); LYMPHOCYTES PERCENT AUTO 14.7 % (24-44); MEAN CORPUSCULAR HEMOGLOBIN 28.7 pg (27.0-32.0); MEAN CORPUSCULAR HGB CONC 33.7 g/dL (32.0-36.0); MEAN CORPUSCULAR VOLUME 85.2 fL (83.0-97.0); MONOCYTES PERCENT AUTO 13.1 % (0-10); NEUTROPHILS ABSOLUTE AUTO 4.79 x10^3/uL (1.80-8.00); PLATELET COUNT,PLT 244 10^3/uL (150-400); RED BLOOD CELL COUNT 4.11 x10^6/uL (4.50-6.00); WHITE BLOOD CELL COUNT,WBC 6.9 10^3/uL (4.0-11.0)
[2024-10-27] MEDS: Insulin NPH/Insulin Regular,Human 70-30 100 Units/ML 10 ML Vial SUBCUT SCH (08:18)
[2024-10-27] MEDS: Sodium Chloride 0.9% 500 ML IV SCH (12:19)
[2024-10-27] MEDS: Sodium Chloride 0.9% 1,000 ML IV SCH (12:56)
[2024-10-28 07:40] LABS: BASOPHILS ABSOLUTE AUTO 0.01 10^3/uL (0.00-0.50); BASOPHILS PERCENT AUTO 0.2 % (0-1); EOSINOPHILS ABSOLUTE AUTO 0.09 10^3/uL (0.00-1.50); EOSINOPHILS PERCENT AUTO 1.5 % (0-6); HEMATOCRIT 32.4 % (42.0-52.0); HEMOGLOBIN 10.6 g/dL (14.0-18.0); IMMATURE GRAN ABSOLUTE AUTO 0.02 10^3/uL (0.00-0.49); IMMATURE GRAN PERCENT AUTO 0.3 % (0.0-4.9); LYMPHOCYTES ABSOLUTE AUTO 0.84 10^3/uL (0.60-5.00); LYMPHOCYTES PERCENT AUTO 14.4 % (24-44); MEAN CORPUSCULAR HEMOGLOBIN 28.2 pg (27.0-32.0); MEAN CORPUSCULAR HGB CONC 32.7 g/dL (32.0-36.0); MEAN CORPUSCULAR VOLUME 86.2 fL (83.0-97.0); MONOCYTES ABSOLUTE AUTO 0.66 10^3/uL (0.00-1.50); MONOCYTES PERCENT AUTO 11.3 % (0-10); NEUTROPHILS ABSOLUTE AUTO 4.23 x10^3/uL (1.80-8.00); NEUTROPHILS PERCENT AUTO 72.3 % (41-71); PLATELET COUNT,PLT 218 10^3/uL (150-400); RED BLOOD CELL COUNT 3.76 x10^6/uL (4.50-6.00); WHITE BLOOD CELL COUNT,WBC 5.9 10^3/uL (4.0-11.0)
[2024-10-28 08:36] LABS: BILIRUBIN TOTAL 0.4 mg/dL (0.0-1.0); C-REACTIVE PROTEIN 2.46 mg/dL (<=0.50); CALCIUM 8.8 mg/dL (8.4-10.1); CREATININE 2.1 mg/dL (0.7-1.3); EST CRCL DRUG DOSING (CG) 23.44 mL/min; POTASSIUM,K 3.8 mEq/L (3.5-5.0); PROTEIN TOTAL,TP 5.4 g/dL (6.4-8.2)
[2024-10-28] MEDS: Levofloxacin/Dextrose 5%-Water 750 MG in Premix Bag 1 BAG IV SCH (17:30)
[2024-10-28] MEDS: Acetaminophen 325 MG Tab PO PRN (21:33)
[2024-10-29 07:36] LABS: BASOPHILS ABSOLUTE AUTO 0.01 10^3/uL (0.00-0.50); BASOPHILS PERCENT AUTO 0.2 % (0-1); EOSINOPHILS ABSOLUTE AUTO 0.15 10^3/uL (0.00-1.50); EOSINOPHILS PERCENT AUTO 2.4 % (0-6); HEMATOCRIT 36.3 % (42.0-52.0); HEMOGLOBIN 11.7 g/dL (14.0-18.0); IMMATURE GRAN ABSOLUTE AUTO 0.03 10^3/uL (0.00-0.49); IMMATURE GRAN PERCENT AUTO 0.5 % (0.0-4.9); LYMPHOCYTES ABSOLUTE AUTO 0.83 10^3/uL (0.60-5.00); LYMPHOCYTES PERCENT AUTO 13.3 % (24-44); MEAN CORPUSCULAR HEMOGLOBIN 28.3 pg (27.0-32.0); MEAN CORPUSCULAR HGB CONC 32.2 g/dL (32.0-36.0); MEAN CORPUSCULAR VOLUME 87.9 fL (83.0-97.0); MONOCYTES ABSOLUTE AUTO 0.67 10^3/uL (0.00-1.50); MONOCYTES PERCENT AUTO 10.8 % (0-10); NEUTROPHILS ABSOLUTE AUTO 4.54 x10^3/uL (1.80-8.00); NEUTROPHILS PERCENT AUTO 72.8 % (41-71); PLATELET COUNT,PLT 250 10^3/uL (150-400); RED BLOOD CELL COUNT 4.13 x10^6/uL (4.50-6.00); WHITE BLOOD CELL COUNT,WBC 6.2 10^3/uL (4.0-11.0)
[2024-10-29 08:06] LABS: ALBUMIN 2.1 g/dL (3.4-5.0); BILIRUBIN TOTAL 0.3 mg/dL (0.0-1.0); C-REACTIVE PROTEIN 1.73 mg/dL (<=0.50); CALCIUM 8.8 mg/dL (8.4-10.1); CREATININE 1.9 mg/dL (0.7-1.3); EST CRCL DRUG DOSING (CG) 26.41 mL/min; PROTEIN TOTAL,TP 5.8 g/dL (6.4-8.2)
[2024-10-30 08:00] LABS: BASOPHILS ABSOLUTE AUTO 0.02 10^3/uL (0.00-0.50); BASOPHILS PERCENT AUTO 0.3 % (0-1); EOSINOPHILS ABSOLUTE AUTO 0.11 10^3/uL (0.00-1.50); EOSINOPHILS PERCENT AUTO 1.8 % (0-6); HEMATOCRIT 35.2 % (42.0-52.0); HEMOGLOBIN 11.4 g/dL (14.0-18.0); IMMATURE GRAN ABSOLUTE AUTO 0.03 10^3/uL (0.00-0.49); IMMATURE GRAN PERCENT AUTO 0.5 % (0.0-4.9); LYMPHOCYTES ABSOLUTE AUTO 0.73 10^3/uL (0.60-5.00); LYMPHOCYTES PERCENT AUTO 12.3 % (24-44); MEAN CORPUSCULAR HEMOGLOBIN 28.5 pg (27.0-32.0); MEAN CORPUSCULAR HGB CONC 32.4 g/dL (32.0-36.0); MONOCYTES ABSOLUTE AUTO 0.56 10^3/uL (0.00-1.50); MONOCYTES PERCENT AUTO 9.4 % (0-10); NEUTROPHILS PERCENT AUTO 75.7 % (41-71); PLATELET COUNT,PLT 231 10^3/uL (150-400)
[2024-10-30 08:13] LABS: ALBUMIN 2.1 g/dL (3.4-5.0); BILIRUBIN TOTAL 0.3 mg/dL (0.0-1.0); C-REACTIVE PROTEIN 1.32 mg/dL (<=0.50); CALCIUM 8.8 mg/dL (8.4-10.1); CREATININE 1.7 mg/dL (0.7-1.3); EST CRCL DRUG DOSING (CG) 29.86 mL/min; POTASSIUM,K 4.3 mEq/L (3.5-5.0); PROTEIN TOTAL,TP 5.7 g/dL (6.4-8.2)
[2024-10-30] MEDS: Carvedilol 6.25 MG Tab PO SCH (08:53)
[2024-10-30] MEDS ORDERED: Docusate Sodium 100 MG Cap PO PRN (20:36)
[2024-10-30] MEDS: Docusate Sodium 100 MG Cap PO SCH (20:52)
[2024-10-31 07:16] LABS: BASOPHILS ABSOLUTE AUTO 0.03 10^3/uL (0.00-0.50); BASOPHILS PERCENT AUTO 0.5 % (0-1); EOSINOPHILS ABSOLUTE AUTO 0.07 10^3/uL (0.00-1.50); EOSINOPHILS PERCENT AUTO 1.2 % (0-6); HEMATOCRIT 33.1 % (42.0-52.0); HEMOGLOBIN 10.8 g/dL (14.0-18.0); IMMATURE GRAN ABSOLUTE AUTO 0.02 10^3/uL (0.00-0.49); IMMATURE GRAN PERCENT AUTO 0.3 % (0.0-4.9); LYMPHOCYTES ABSOLUTE AUTO 0.67 10^3/uL (0.60-5.00); LYMPHOCYTES PERCENT AUTO 11.7 % (24-44); MEAN CORPUSCULAR HEMOGLOBIN 28.8 pg (27.0-32.0); MEAN CORPUSCULAR HGB CONC 32.6 g/dL (32.0-36.0); MEAN CORPUSCULAR VOLUME 88.3 fL (83.0-97.0); MONOCYTES ABSOLUTE AUTO 0.55 10^3/uL (0.00-1.50); MONOCYTES PERCENT AUTO 9.6 % (0-10); NEUTROPHILS ABSOLUTE AUTO 4.38 x10^3/uL (1.80-8.00); NEUTROPHILS PERCENT AUTO 76.7 % (41-71); PLATELET COUNT,PLT 222 10^3/uL (150-400); RED BLOOD CELL COUNT 3.75 x10^6/uL (4.50-6.00); WHITE BLOOD CELL COUNT,WBC 5.7 10^3/uL (4.0-11.0)
[2024-10-31 07:22] LABS: ALBUMIN 1.9 g/dL (3.4-5.0); BILIRUBIN TOTAL 0.3 mg/dL (0.0-1.0); CALCIUM 8.2 mg/dL (8.4-10.1); CREATININE 1.7 mg/dL (0.7-1.3); EST CRCL DRUG DOSING (CG) 29.86 mL/min; POTASSIUM,K 4.7 mEq/L (3.5-5.0); PROTEIN TOTAL,TP 5.5 g/dL (6.4-8.2)
[2024-10-31] MEDS: Polyethylene Glycol 3350 Powder 17 GM Packet PO PRN (11:29)
[2024-10-31] MEDS: Insulin NPH/Insulin Regular,Human 70-30 100 Units/ML 10 ML Vial SUBCUT SCH (20:05)
[2024-11-01 07:33] LABS: CALCIUM 8.3 mg/dL (8.4-10.1); CREATININE 1.8 mg/dL (0.7-1.3); EST CRCL DRUG DOSING (CG) 28.73 mL/min; POTASSIUM,K 4.4 mEq/L (3.5-5.0)
[2024-11-01 07:42] LABS: BASOPHILS ABSOLUTE AUTO 0.02 10^3/uL (0.00-0.50); BASOPHILS PERCENT AUTO 0.3 % (0-1); EOSINOPHILS ABSOLUTE AUTO 0.13 10^3/uL (0.00-1.50); EOSINOPHILS PERCENT AUTO 2.2 % (0-6); HEMATOCRIT 30.7 % (42.0-52.0); HEMOGLOBIN 9.9 g/dL (14.0-18.0); IMMATURE GRAN ABSOLUTE AUTO 0.02 10^3/uL (0.00-0.49); IMMATURE GRAN PERCENT AUTO 0.3 % (0.0-4.9); LYMPHOCYTES ABSOLUTE AUTO 1.05 10^3/uL (0.60-5.00); LYMPHOCYTES PERCENT AUTO 17.5 % (24-44); MEAN CORPUSCULAR HEMOGLOBIN 28.4 pg (27.0-32.0); MEAN CORPUSCULAR HGB CONC 32.2 g/dL (32.0-36.0); MONOCYTES ABSOLUTE AUTO 0.79 10^3/uL (0.00-1.50); MONOCYTES PERCENT AUTO 13.2 % (0-10); NEUTROPHILS ABSOLUTE AUTO 3.99 x10^3/uL (1.80-8.00); NEUTROPHILS PERCENT AUTO 66.5 % (41-71); PLATELET COUNT,PLT 213 10^3/uL (150-400); RED BLOOD CELL COUNT 3.49 x10^6/uL (4.50-6.00)
[2024-11-01] MEDS: Insulin NPH/Insulin Regular,Human 70-30 100 Units/ML 10 ML Vial SUBCUT SCH (09:00)
[2024-11-01 16:21] VITALS: BP 119/59; PULSE 71
== END 2024-11-01 19:05 | disposition home or self-care (01) | DRG 638 ==
LOC: CC.ED 14:48 → SUPCPDRO 14:48 → CC.MS 16:22 → UNDOADMIN 16:22 → CC.MS 16:24
PROVIDERS: ADMIT Nurse Practitioner Family; ATTEND Nurse Practitioner Family
DX: E11.65 Type 2 diabetes mellitus with hyperglycemia (principal); E87.1 Hypo-osmolality and hyponatremia; N41.0 Acute prostatitis; N17.9 Acute kidney failure, unspecified; E11.9 Type 2 diabetes mellitus without complications; N41.3 Prostatocystitis; I25.10 Atherosclerotic heart disease of native coronary artery without angina pectoris; I11.0 Hypertensive heart disease with heart failure; E78.00 Pure hypercholesterolemia, unspecified; Z79.01 Long term (current) use of anticoagulants; N40.0 Benign prostatic hyperplasia without lower urinary tract symptoms; M19.90 Unspecified osteoarthritis, unspecified site; F32.A Depression, unspecified; I50.9 Heart failure, unspecified; I48.91 Unspecified atrial fibrillation; I44.7 Left bundle-branch block, unspecified; R53.81 Other malaise; R55 Syncope and collapse; Z79.890 Hormone replacement therapy; Z79.4 Long term (current) use of insulin; Z79.899 Other long term (current) drug therapy; Z95.1 Presence of aortocoronary bypass graft; Z87.891 Personal history of nicotine dependence
CPT/HCPCS: 36415; 70450; 71045; 80048; 80053; 81001; 82947; 83880; 84484; 85025; 86140; 86308; 87086; 87428-QW; 93005; 93010; 93880; 96374; 97161-GP; 97530-GP; 99285-25; A9270-GY; J1815-GY; J1938; J1956; J7030; J7040

== ENCOUNTER 2024-11-18 19:58 | Observation (INO) | payer MEDICARE ==
[2024-11-18] MEDS: 50% Dextrose in Water 50 ML Syringe IVPUSH ONE (20:25)
[2024-11-18 20:28] LABS: BASOPHILS ABSOLUTE AUTO 0.03 10^3/uL (0.00-0.50); BASOPHILS PERCENT AUTO 0.3 % (0-1); EOSINOPHILS ABSOLUTE AUTO 0.02 10^3/uL (0.00-1.50); EOSINOPHILS PERCENT AUTO 0.2 % (0-6); HEMATOCRIT 34.3 % (42.0-52.0); HEMOGLOBIN 11.1 g/dL (14.0-18.0); IMMATURE GRAN ABSOLUTE AUTO 0.04 10^3/uL (0.00-0.49); IMMATURE GRAN PERCENT AUTO 0.4 % (0.0-4.9); LYMPHOCYTES ABSOLUTE AUTO 1.56 10^3/uL (0.60-5.00); LYMPHOCYTES PERCENT AUTO 16.7 % (24-44); MEAN CORPUSCULAR HEMOGLOBIN 28.5 pg (27.0-32.0); MEAN CORPUSCULAR HGB CONC 32.4 g/dL (32.0-36.0); MEAN CORPUSCULAR VOLUME 87.9 fL (83.0-97.0); MONOCYTES ABSOLUTE AUTO 1.02 10^3/uL (0.00-1.50); MONOCYTES PERCENT AUTO 10.9 % (0-10); NEUTROPHILS ABSOLUTE AUTO 6.66 x10^3/uL (1.80-8.00); NEUTROPHILS PERCENT AUTO 71.5 % (41-71); PLATELET COUNT,PLT 192 10^3/uL (150-400); WHITE BLOOD CELL COUNT,WBC 9.3 10^3/uL (4.0-11.0)
[2024-11-18] MEDS: Sodium Chloride 0.9% 1,000 ML IV SCH (20:32)
[2024-11-18 20:42] LABS: ALANINE AMINOTRANSFERASE,ALT 29 U/L (12-78); ALBUMIN 2.8 g/dL (3.4-5.0); ALKALINE PHOSPHATASE 142 U/L (46-116); ASPARTATE AMNIOTRANSFERASE,AST 61 U/L (15-37); BILIRUBIN TOTAL 0.7 mg/dL (0.0-1.0); BLOOD UREA NITROGEN,BUN 31 mg/dL (7-18); C-REACTIVE PROTEIN 1.04 mg/dL (<=0.50); CALCIUM 9.5 mg/dL (8.4-10.1); CARBON DIOXIDE,CO2 28 mmol/L (21-32); CHLORIDE,CL 102 mEq/L (98-106); CREATININE 1.8 mg/dL (0.7-1.3); POTASSIUM,K 4.2 mEq/L (3.5-5.0); SODIUM,NA 140 mEq/L (136-145)
[2024-11-18 20:44] LABS: ESTIMATED GFR 36 mL/min (>=60); GLUCOSE RANDOM 30 mg/dL (75-99)
[2024-11-18] MEDS ORDERED: Sodium Chloride 0.9% 1,000 ML IV SCH (21:56)
[2024-11-18] MEDS ORDERED: Ondansetron 4 MG Tab.DIS PO PRN (21:56)
[2024-11-18] MEDS ORDERED: Ondansetron 4 MG/2 ML SDV IV PRN (21:56)
[2024-11-18] MEDS ORDERED: Sodium Chloride 0.9% 10 ML Syringe FLUSH PRN (21:56)
[2024-11-18] MEDS: Apixaban 5 MG Tab PO SCH (22:37)
[2024-11-18] MEDS: Acetaminophen 325 MG Tab PO PRN (22:39)
[2024-11-18] MEDS: Sodium Chloride 0.9% 1,000 ML ONE (23:30)
[2024-11-19 07:41] LABS: HEMATOCRIT 32.2 % (42.0-52.0); HEMOGLOBIN 10.4 g/dL (14.0-18.0); IMMATURE GRAN ABSOLUTE AUTO 0.02 10^3/uL (0.00-0.49); IMMATURE GRAN PERCENT AUTO 0.2 % (0.0-4.9); LYMPHOCYTES ABSOLUTE AUTO 1.35 10^3/uL (0.60-5.00); LYMPHOCYTES PERCENT AUTO 12.6 % (24-44); MEAN CORPUSCULAR HEMOGLOBIN 28.4 pg (27.0-32.0); MEAN CORPUSCULAR HGB CONC 32.3 g/dL (32.0-36.0); MONOCYTES ABSOLUTE AUTO 0.84 10^3/uL (0.00-1.50); MONOCYTES PERCENT AUTO 7.9 % (0-10); NEUTROPHILS ABSOLUTE AUTO 8.48 x10^3/uL (1.80-8.00); NEUTROPHILS PERCENT AUTO 79.3 % (41-71); PLATELET COUNT,PLT 184 10^3/uL (150-400); RED BLOOD CELL COUNT 3.66 x10^6/uL (4.50-6.00); WHITE BLOOD CELL COUNT,WBC 10.7 10^3/uL (4.0-11.0)
[2024-11-19 07:41] LABS: APPEARANCE,URINE CLEAR (CLEAR); BILIRUBIN,URINE NEGATIVE (NEGATIVE); COLOR,URINE YELLOW (YELLOW); GLUCOSE,URINE NEGATIVE (NEGATIVE); KETONES,URINE NEGATIVE (NEGATIVE); LEUKOCYTE ESTERASE,URINE MODERATE (NEGATIVE); NITRITE,URINE NEGATIVE (NEGATIVE); OCCULT BLOOD,URINE MODERATE (NEGATIVE); PROTEIN,URINE TRACE mg/dL (NEGATIVE); UROBILINOGEN,URINE 0.2 EU/dL (0.2-1.0)
[2024-11-19 07:49] LABS: BACTERIA,URINE FEW /HPF (NOT SEEN); EPITHELIAL CELLS,URINE RARE /HPF (NOT SEEN); MUCUS,URINE FEW /HPF (NOT SEEN); WBC,URINE 50-75 /HPF (0-5)
[2024-11-19] MEDS: Magnesium Oxide 400 MG Tab PO SCH (08:00)
[2024-11-19] MEDS: Levothyroxine 125 MCG Tab PO SCH (08:00)
[2024-11-19] MEDS: Venlafaxine 75 MG Cap.ER PO SCH (08:00)
[2024-11-19] MEDS: Furosemide 20 MG Tab PO SCH (08:00)
[2024-11-19] MEDS: Simvastatin 10 MG Tab PO SCH (08:01)
[2024-11-19] MEDS: Carvedilol 6.25 MG Tab PO SCH (08:01)
[2024-11-19] MEDS: Tamsulosin 0.4 MG Cap.ER PO SCH (08:01)
[2024-11-19 08:04] LABS: ALBUMIN 2.4 g/dL (3.4-5.0); CALCIUM 8.9 mg/dL (8.4-10.1); CREATININE 1.9 mg/dL (0.7-1.3); EST CRCL DRUG DOSING (CG) 27.21 mL/min; POTASSIUM,K 5.3 mEq/L (3.5-5.0); PROTEIN TOTAL,TP 6.2 g/dL (6.4-8.2)
[2024-11-19] MEDS: Insulin NPH/Insulin Regular,Human 70-30 100 Units/ML 10 ML Vial SUBCUT SCH (09:00)
[2024-11-19] MEDS: Sulfamethoxazole/Trimethoprim 800-160 MG Tab PO ONE (11:00)
[2024-11-19 11:49] VITALS: BP 107/55; PULSE 72
[2024-11-19] MEDS ORDERED: Insulin NPH/Insulin Regular,Human 70-30 100 Units/ML 10 ML Vial SUBCUT SCH (20:00)
[2024-11-20] MEDS ORDERED: Levothyroxine 125 MCG Tab PO SCH (07:00)
== END 2024-11-19 13:30 | disposition home or self-care (01) ==
LOC: CC.ED 19:58 → CC.MS 21:06
PROVIDERS: ADMIT Nurse Practitioner Family; ATTEND Nurse Practitioner Family
DX: E11.649 Type 2 diabetes mellitus with hypoglycemia without coma (principal); N30.00 Acute cystitis without hematuria; I10 Essential (primary) hypertension; E78.00 Pure hypercholesterolemia, unspecified; I25.10 Atherosclerotic heart disease of native coronary artery without angina pectoris; Z79.4 Long term (current) use of insulin; Z79.899 Other long term (current) drug therapy
CPT/HCPCS: 36415; 80053; 81001; 82947; 85025; 86140; 87086; 87088; 87186; 96361; 96374; 99285-25; A9270-GY; G0378; J1815-GY; J7030

== ENCOUNTER 2024-11-20 07:58 | Observation (INO) | payer MEDICARE ==
[2024-11-20] MEDS: 50% Dextrose in Water 50 ML Syringe IVPUSH ONE (08:04)
[2024-11-20] MEDS ORDERED: Sodium Chloride 0.9% 10 ML Syringe FLUSH PRN ×2 (08:04→09:07)
[2024-11-20 08:26] LABS: BASOPHILS ABSOLUTE AUTO 0.02 10^3/uL (0.00-0.50); BASOPHILS PERCENT AUTO 0.2 % (0-1); EOSINOPHILS ABSOLUTE AUTO 0.05 10^3/uL (0.00-1.50); EOSINOPHILS PERCENT AUTO 0.6 % (0-6); HEMATOCRIT 30.7 % (42.0-52.0); HEMOGLOBIN 9.8 g/dL (14.0-18.0); IMMATURE GRAN ABSOLUTE AUTO 0.02 10^3/uL (0.00-0.49); IMMATURE GRAN PERCENT AUTO 0.2 % (0.0-4.9); LYMPHOCYTES ABSOLUTE AUTO 1.09 10^3/uL (0.60-5.00); LYMPHOCYTES PERCENT AUTO 13.5 % (24-44); MEAN CORPUSCULAR HEMOGLOBIN 28.5 pg (27.0-32.0); MEAN CORPUSCULAR HGB CONC 31.9 g/dL (32.0-36.0); MEAN CORPUSCULAR VOLUME 89.2 fL (83.0-97.0); MONOCYTES ABSOLUTE AUTO 0.77 10^3/uL (0.00-1.50); MONOCYTES PERCENT AUTO 9.5 % (0-10); NEUTROPHILS ABSOLUTE AUTO 6.12 x10^3/uL (1.80-8.00); PLATELET COUNT,PLT 178 10^3/uL (150-400); RED BLOOD CELL COUNT 3.44 x10^6/uL (4.50-6.00); WHITE BLOOD CELL COUNT,WBC 8.1 10^3/uL (4.0-11.0)
[2024-11-20 08:38] LABS: ALBUMIN 2.2 g/dL (3.4-5.0); BILIRUBIN TOTAL 0.8 mg/dL (0.0-1.0); CALCIUM 8.6 mg/dL (8.4-10.1); EST CRCL DRUG DOSING (CG) 25.85 mL/min; POTASSIUM,K 4.5 mEq/L (3.5-5.0); PROTEIN TOTAL,TP 6.1 g/dL (6.4-8.2)
[2024-11-20] MEDS ORDERED: Ondansetron 4 MG Tab.DIS PO PRN (09:07)
[2024-11-20] MEDS ORDERED: Acetaminophen 325 MG Tab PO PRN (09:07)
[2024-11-20] MEDS ORDERED: Ondansetron 4 MG/2 ML SDV IV PRN (09:07)
[2024-11-20] MEDS: Venlafaxine 75 MG Cap.ER PO SCH (10:14)
[2024-11-20] MEDS: Apixaban 5 MG Tab PO SCH (10:15)
[2024-11-20] MEDS: Magnesium Oxide 400 MG Tab PO SCH (10:15)
[2024-11-20] MEDS: Sulfamethoxazole/Trimethoprim 800-160 MG Tab PO SCH (10:15)
[2024-11-20] MEDS: Levothyroxine 125 MCG Tab PO SCH (10:15)
[2024-11-20] MEDS: Tamsulosin 0.4 MG Cap.ER PO SCH (10:15)
[2024-11-20] MEDS: Furosemide 20 MG Tab PO SCH (10:15)
[2024-11-20] MEDS: Carvedilol 6.25 MG Tab PO SCH (17:36)
[2024-11-20] MEDS: Insulin NPH/Insulin Regular,Human 70-30 100 Units/ML 10 ML Vial SUBCUT SCH (19:22)
[2024-11-21] MEDS: Simvastatin 10 MG Tab PO SCH (07:31)
[2024-11-21 07:41] LABS: BASOPHILS ABSOLUTE AUTO 0.03 10^3/uL (0.00-0.50); BASOPHILS PERCENT AUTO 0.4 % (0-1); EOSINOPHILS ABSOLUTE AUTO 0.22 10^3/uL (0.00-1.50); EOSINOPHILS PERCENT AUTO 3.2 % (0-6); HEMATOCRIT 31.3 % (42.0-52.0); HEMOGLOBIN 10.2 g/dL (14.0-18.0); LYMPHOCYTES ABSOLUTE AUTO 1.63 10^3/uL (0.60-5.00); MEAN CORPUSCULAR HEMOGLOBIN 28.9 pg (27.0-32.0); MEAN CORPUSCULAR HGB CONC 32.6 g/dL (32.0-36.0); MEAN CORPUSCULAR VOLUME 88.7 fL (83.0-97.0); MONOCYTES PERCENT AUTO 7.4 % (0-10); NEUTROPHILS ABSOLUTE AUTO 4.42 x10^3/uL (1.80-8.00); PLATELET COUNT,PLT 218 10^3/uL (150-400); RED BLOOD CELL COUNT 3.53 x10^6/uL (4.50-6.00); WHITE BLOOD CELL COUNT,WBC 6.8 10^3/uL (4.0-11.0)
[2024-11-21 08:22] LABS: ALBUMIN 2.2 g/dL (3.4-5.0); BILIRUBIN TOTAL 0.6 mg/dL (0.0-1.0); CALCIUM 8.7 mg/dL (8.4-10.1); CREATININE 1.9 mg/dL (0.7-1.3); EST CRCL DRUG DOSING (CG) 27.21 mL/min; POTASSIUM,K 4.1 mEq/L (3.5-5.0); PROTEIN TOTAL,TP 6.2 g/dL (6.4-8.2)
[2024-11-21] MEDS: Insulin NPH/Insulin Regular,Human 70-30 100 Units/ML 10 ML Vial SUBCUT SCH (09:12)
[2024-11-21] MEDS: Glucose Gel 15 GM in 37.5 GM Tube PO PRN (16:03)
[2024-11-22 07:03] LABS: BASOPHILS ABSOLUTE AUTO 0.02 10^3/uL (0.00-0.50); BASOPHILS PERCENT AUTO 0.3 % (0-1); EOSINOPHILS ABSOLUTE AUTO 0.18 10^3/uL (0.00-1.50); EOSINOPHILS PERCENT AUTO 2.8 % (0-6); HEMATOCRIT 31.6 % (42.0-52.0); HEMOGLOBIN 10.1 g/dL (14.0-18.0); IMMATURE GRAN ABSOLUTE AUTO 0.01 10^3/uL (0.00-0.49); IMMATURE GRAN PERCENT AUTO 0.2 % (0.0-4.9); LYMPHOCYTES ABSOLUTE AUTO 1.97 10^3/uL (0.60-5.00); LYMPHOCYTES PERCENT AUTO 30.4 % (24-44); MEAN CORPUSCULAR HEMOGLOBIN 28.5 pg (27.0-32.0); MONOCYTES ABSOLUTE AUTO 0.65 10^3/uL (0.00-1.50); NEUTROPHILS ABSOLUTE AUTO 3.66 x10^3/uL (1.80-8.00); NEUTROPHILS PERCENT AUTO 56.3 % (41-71); PLATELET COUNT,PLT 226 10^3/uL (150-400); RED BLOOD CELL COUNT 3.55 x10^6/uL (4.50-6.00); WHITE BLOOD CELL COUNT,WBC 6.5 10^3/uL (4.0-11.0)
[2024-11-22 07:26] LABS: ALBUMIN 2.2 g/dL (3.4-5.0); BILIRUBIN TOTAL 0.7 mg/dL (0.0-1.0); CALCIUM 8.7 mg/dL (8.4-10.1); CREATININE 2.1 mg/dL (0.7-1.3); EST CRCL DRUG DOSING (CG) 24.62 mL/min; POTASSIUM,K 4.7 mEq/L (3.5-5.0); PROTEIN TOTAL,TP 6.1 g/dL (6.4-8.2)
[2024-11-22 08:37] VITALS: BP 152/72; PULSE 94
== END 2024-11-22 10:47 | disposition swing bed (61) ==
LOC: CC.ED 07:58 → CC.MS 09:07 → UNDOADMOB 09:31 → CC.MS 09:31
PROVIDERS: ADMIT Nurse Practitioner Family; ATTEND Nurse Practitioner Family
DX: E11.649 Type 2 diabetes mellitus with hypoglycemia without coma (principal); N30.00 Acute cystitis without hematuria; I10 Essential (primary) hypertension; E78.00 Pure hypercholesterolemia, unspecified; I25.10 Atherosclerotic heart disease of native coronary artery without angina pectoris; Z79.4 Long term (current) use of insulin; Z79.899 Other long term (current) drug therapy
CPT/HCPCS: 36415; 70450; 80053; 82947; 85025; 96374; 99223; 99233; 99239; 99285-25; A9270-GY; G0378; J1815-GY

== ENCOUNTER 2024-11-22 10:15 | Inpatient (IN) | payer SELFPAY ==
[2024-11-22] MEDS ORDERED: Glucose Gel 15 GM in 37.5 GM Tube PO PRN (10:59)
[2024-11-22] MEDS ORDERED: Acetaminophen 325 MG Tab PO PRN (10:59)
[2024-11-22] MEDS ORDERED: Ondansetron 4 MG Tab.DIS PO PRN (10:59)
[2024-11-22] MEDS ORDERED: Ondansetron 4 MG/2 ML SDV IV PRN (10:59)
[2024-11-22] MEDS ORDERED: Sodium Chloride 0.9% 10 ML Syringe FLUSH PRN ×2 (10:59)
[2024-11-22] MEDS ORDERED: Glucagon,Human Recombinant 1 MG Vial IM PRN (11:01)
[2024-11-22] MEDS ORDERED: 50% Dextrose in Water 50 ML Syringe IVPUSH PRN (11:01)
[2024-11-22 11:53] LABS: GLUCOSE,POC 289 mg/dL (75-105)
[2024-11-22] MEDS: Carvedilol 6.25 MG Tab **OWN MED PO SCH (16:46)
[2024-11-22 17:54] LABS: GLUCOSE,POC 423 mg/dL (75-105)
[2024-11-22] MEDS: INSULIN GLARGINE 100 UNIT/ML SUBCUT SCH (18:00)
[2024-11-22] MEDS: TRIMETHOPRIM PO SCH (19:40)
[2024-11-22] MEDS: SULFAMETHOXAZOLE PO SCH (19:40)
[2024-11-22] MEDS: Simvastatin 20 MG Tab **OWN MED PO SCH (19:41)
[2024-11-22] MEDS ORDERED: INSULIN GLARGINE 100 UNIT/ML SUBCUT SCH (20:00)
[2024-11-22 21:35] LABS: GLUCOSE,POC 410 mg/dL (75-105)
[2024-11-23] MEDS: Levothyroxine 125 MCG Tab **OWN MED PO SCH (06:39)
[2024-11-23] MEDS ORDERED: Magnesium Oxide 400 MG Tab PO SCH (08:00)
[2024-11-23] MEDS: Tamsulosin 0.4 MG Cap.ER **OWN MED PO SCH (08:12)
[2024-11-23] MEDS: Furosemide 20 MG Tab **OWN MED PO SCH (08:13)
[2024-11-23] MEDS: MAGNESIUM OXIDE 400 MG PO SCH (08:14)
[2024-11-23] MEDS: VENLAFAXINE 150 MG PO SCH (08:16)
[2024-11-23 18:00] LABS: GLUCOSE,POC 425 mg/dL (75-105)
[2024-11-23] MEDS: INSULIN GLARGINE 100 UNIT/ML SUBCUT SCH (20:00)
[2024-11-23 20:16] LABS: GLUCOSE,POC 447 mg/dL (75-105)
[2024-11-24 20:07] LABS: GLUCOSE,POC 446 mg/dL (75-105)
[2024-11-25 07:50] LABS: GLUCOSE,POC 126 mg/dL (75-105)
[2024-11-25 11:53] VITALS: BP 138/59; PULSE 85
[2024-11-25 12:02] LABS: GLUCOSE,POC 311 mg/dL (75-105)
== END 2024-11-25 13:24 | disposition home or self-care (01) | DRG 948 ==
LOC: EDSTATUS 10:16 → UNDOADMIN 10:58 → CC.MS 10:58
PROVIDERS: ADMIT Physician Assistant Medical; ATTEND Physician Assistant Medical
DX: R53.1 Weakness (principal); Z79.899 Other long term (current) drug therapy; Z79.01 Long term (current) use of anticoagulants; Z79.4 Long term (current) use of insulin
CPT/HCPCS: 82947; 97110-GP; 97161-GP; 97530-GP; A9270-GY

== ENCOUNTER 2024-12-05 20:00 | Inpatient (IN) | payer MEDICARE ==
[2024-12-05 20:25] LABS: APPEARANCE,URINE CLEAR (CLEAR); BILIRUBIN,URINE NEGATIVE (NEGATIVE); COLOR,URINE YELLOW (YELLOW); GLUCOSE,URINE >=1000 mg/dL (NEGATIVE); KETONES,URINE 40 mg/dL (NEGATIVE); LEUKOCYTE ESTERASE,URINE NEGATIVE (NEGATIVE); NITRITE,URINE NEGATIVE (NEGATIVE); OCCULT BLOOD,URINE TRACE-INTACT (NEGATIVE); PH,URINE 5.5 (4.5-8.0); PROTEIN,URINE NEGATIVE (NEGATIVE); UROBILINOGEN,URINE 0.2 EU/dL (0.2-1.0)
[2024-12-05 20:29] LABS: BASOPHILS ABSOLUTE AUTO 0.03 10^3/uL (0.00-0.50); BASOPHILS PERCENT AUTO 0.4 % (0-1); EOSINOPHILS ABSOLUTE AUTO 0.02 10^3/uL (0.00-1.50); EOSINOPHILS PERCENT AUTO 0.3 % (0-6); HEMATOCRIT 36.9 % (42.0-52.0); HEMOGLOBIN 12.2 g/dL (14.0-18.0); IMMATURE GRAN ABSOLUTE AUTO 0.02 10^3/uL (0.00-0.49); IMMATURE GRAN PERCENT AUTO 0.3 % (0.0-4.9); LYMPHOCYTES ABSOLUTE AUTO 1.81 10^3/uL (0.60-5.00); MEAN CORPUSCULAR HEMOGLOBIN 28.6 pg (27.0-32.0); MEAN CORPUSCULAR HGB CONC 33.1 g/dL (32.0-36.0); MEAN CORPUSCULAR VOLUME 86.6 fL (83.0-97.0); MONOCYTES ABSOLUTE AUTO 0.54 10^3/uL (0.00-1.50); NEUTROPHILS ABSOLUTE AUTO 4.29 x10^3/uL (1.80-8.00); PLATELET COUNT,PLT 326 10^3/uL (150-400); RED BLOOD CELL COUNT 4.26 x10^6/uL (4.50-6.00); WHITE BLOOD CELL COUNT,WBC 6.7 10^3/uL (4.0-11.0)
[2024-12-05 20:32] LABS: BACTERIA,URINE FEW /HPF (NOT SEEN); RBC,URINE 0-5 /HPF (0-5); WBC CLUMPS,URINE FEW /HPF (NOT SEEN); WBC,URINE 30-40 /HPF (0-5)
[2024-12-05 20:38] LABS: ALANINE AMINOTRANSFERASE,ALT 16 U/L (12-78); ALBUMIN 2.9 g/dL (3.4-5.0); ALKALINE PHOSPHATASE 171 U/L (46-116); ASPARTATE AMNIOTRANSFERASE,AST 23 U/L (15-37); BILIRUBIN TOTAL 1.1 mg/dL (0.0-1.0); BLOOD UREA NITROGEN,BUN 34 mg/dL (7-18); CALCIUM 10.1 mg/dL (8.4-10.1); CARBON DIOXIDE,CO2 25 mmol/L (21-32); CHLORIDE,CL 95 mEq/L (98-106); CREATININE 2.3 mg/dL (0.7-1.3); POTASSIUM,K 5.9 mEq/L (3.5-5.0); PROTEIN TOTAL,TP 7.3 g/dL (6.4-8.2); SODIUM,NA 133 mEq/L (136-145)
[2024-12-05 20:41] LABS: ESTIMATED GFR 26 mL/min (>=60); GLUCOSE RANDOM 479 mg/dL (75-99)
[2024-12-05] MEDS ORDERED: Sodium Chloride 0.9% 10 ML Syringe FLUSH PRN (21:05)
[2024-12-05] MEDS: Sodium Chloride 0.9% 1,000 ML IV SCH (21:38)
[2024-12-05] MEDS: Insulin Regular, Human 100 Units/ML 10 ML Vial IVPUSH ONE (21:38)
[2024-12-05] MEDS: Sodium Zirconium Cyclosilicate 10 GM Packet PO SCH (21:40)
[2024-12-05] MEDS: Sodium Zirconium Cyclosilicate 10 GM Packet PO ONE (21:42)
[2024-12-05] MEDS ORDERED: Ondansetron 4 MG Tab.DIS PO PRN (22:13)
[2024-12-05] MEDS ORDERED: Ondansetron 4 MG/2 ML SDV IV PRN (22:13)
[2024-12-05] MEDS ORDERED: Acetaminophen 325 MG Tab PO PRN (22:13)
[2024-12-05] MEDS: Insulin Glarg,Human.Rec.Analog 100 Unit/ML 10 ML Vial SUBCUT SCH (23:10)
[2024-12-05] MEDS: cefTRIAXone 1 GM Vial IVPUSH ONE (23:10)
[2024-12-05] MEDS: Enoxaparin 30 MG/0.3 ML Syringe SUBCUT SCH (23:39)
[2024-12-06 07:52] LABS: BASOPHILS ABSOLUTE AUTO 0.03 10^3/uL (0.00-0.50); BASOPHILS PERCENT AUTO 0.5 % (0-1); EOSINOPHILS ABSOLUTE AUTO 0.05 10^3/uL (0.00-1.50); EOSINOPHILS PERCENT AUTO 0.8 % (0-6); HEMATOCRIT 35.1 % (42.0-52.0); HEMOGLOBIN 11.5 g/dL (14.0-18.0); IMMATURE GRAN ABSOLUTE AUTO 0.01 10^3/uL (0.00-0.49); IMMATURE GRAN PERCENT AUTO 0.2 % (0.0-4.9); LYMPHOCYTES ABSOLUTE AUTO 1.62 10^3/uL (0.60-5.00); LYMPHOCYTES PERCENT AUTO 25.1 % (24-44); MEAN CORPUSCULAR HEMOGLOBIN 28.4 pg (27.0-32.0); MEAN CORPUSCULAR HGB CONC 32.8 g/dL (32.0-36.0); MEAN CORPUSCULAR VOLUME 86.7 fL (83.0-97.0); MONOCYTES ABSOLUTE AUTO 0.64 10^3/uL (0.00-1.50); MONOCYTES PERCENT AUTO 9.9 % (0-10); NEUTROPHILS ABSOLUTE AUTO 4.11 x10^3/uL (1.80-8.00); NEUTROPHILS PERCENT AUTO 63.5 % (41-71); PLATELET COUNT,PLT 295 10^3/uL (150-400); RED BLOOD CELL COUNT 4.05 x10^6/uL (4.50-6.00); WHITE BLOOD CELL COUNT,WBC 6.5 10^3/uL (4.0-11.0)
[2024-12-06] MEDS ORDERED: Sodium Zirconium Cyclosilicate 10 GM Packet PO SCH (08:00)
[2024-12-06] MEDS: Simvastatin 10 MG Tab PO SCH (08:05)
[2024-12-06 08:06] LABS: ALBUMIN 2.5 g/dL (3.4-5.0); BILIRUBIN TOTAL 0.6 mg/dL (0.0-1.0); CALCIUM 9.5 mg/dL (8.4-10.1); CREATININE 1.8 mg/dL (0.7-1.3); EST CRCL DRUG DOSING (CG) 25.11 mL/min; POTASSIUM,K 5.1 mEq/L (3.5-5.0); PROTEIN TOTAL,TP 6.6 g/dL (6.4-8.2)
[2024-12-06] MEDS: Levothyroxine 125 MCG Tab PO SCH (08:06)
[2024-12-06] MEDS: Carvedilol 6.25 MG Tab PO SCH (08:06)
[2024-12-06] MEDS: Furosemide 20 MG Tab PO SCH (08:06)
[2024-12-06] MEDS: Tamsulosin 0.4 MG Cap.ER PO SCH (08:06)
[2024-12-06] MEDS: Venlafaxine 75 MG Cap.ER PO SCH (08:07)
[2024-12-06] MEDS: Lactobacillus Rhamnosus GG (Probiotic) Cap PO SCH (08:08)
[2024-12-06] MEDS: Magnesium Oxide 400 MG Tab PO SCH (08:08)
[2024-12-06] MEDS: Apixaban 5 MG Tab PO SCH (08:08)
[2024-12-06] MEDS ORDERED: Glucagon,Human Recombinant 1 MG Vial IM PRN (08:17)
[2024-12-06] MEDS ORDERED: 50% Dextrose in Water 50 ML Syringe IVPUSH PRN (08:17)
[2024-12-06] MEDS: Insulin Regular, Human 100 Units/ML 10 ML Vial SUBCUT SCH (08:56)
[2024-12-06] MEDS: Sulfamethoxazole/Trimethoprim 800-160 MG Tab PO ONE (12:07)
[2024-12-06] MEDS: Sulfamethoxazole/Trimethoprim 800-160 MG Tab PO SCH (19:43)
[2024-12-06] MEDS: Insulin Glarg,Human.Rec.Analog 100 Unit/ML 10 ML Vial SUBCUT SCH (20:03)
[2024-12-07 08:32] LABS: BASOPHILS ABSOLUTE AUTO 0.03 10^3/uL (0.00-0.50); BASOPHILS PERCENT AUTO 0.5 % (0-1); EOSINOPHILS ABSOLUTE AUTO 0.09 10^3/uL (0.00-1.50); EOSINOPHILS PERCENT AUTO 1.4 % (0-6); HEMATOCRIT 34.9 % (42.0-52.0); HEMOGLOBIN 11.6 g/dL (14.0-18.0); IMMATURE GRAN ABSOLUTE AUTO 0.01 10^3/uL (0.00-0.49); IMMATURE GRAN PERCENT AUTO 0.2 % (0.0-4.9); LYMPHOCYTES ABSOLUTE AUTO 1.84 10^3/uL (0.60-5.00); LYMPHOCYTES PERCENT AUTO 28.2 % (24-44); MEAN CORPUSCULAR HGB CONC 33.2 g/dL (32.0-36.0); MEAN CORPUSCULAR VOLUME 87.3 fL (83.0-97.0); MONOCYTES ABSOLUTE AUTO 0.58 10^3/uL (0.00-1.50); MONOCYTES PERCENT AUTO 8.9 % (0-10); NEUTROPHILS ABSOLUTE AUTO 3.98 x10^3/uL (1.80-8.00); NEUTROPHILS PERCENT AUTO 60.8 % (41-71); PLATELET COUNT,PLT 296 10^3/uL (150-400); WHITE BLOOD CELL COUNT,WBC 6.5 10^3/uL (4.0-11.0)
[2024-12-07 08:37] LABS: ALBUMIN 2.3 g/dL (3.4-5.0); BILIRUBIN TOTAL 0.4 mg/dL (0.0-1.0); CALCIUM 9.1 mg/dL (8.4-10.1); CREATININE 1.6 mg/dL (0.7-1.3); EST CRCL DRUG DOSING (CG) 28.25 mL/min; POTASSIUM,K 4.4 mEq/L (3.5-5.0); PROTEIN TOTAL,TP 6.3 g/dL (6.4-8.2)
[2024-12-07] MEDS: Doxycycline Monohydrate 100 MG Cap PO SCH (19:58)
[2024-12-08 07:18] LABS: ALBUMIN 2.4 g/dL (3.4-5.0); BILIRUBIN TOTAL 0.4 mg/dL (0.0-1.0); C-REACTIVE PROTEIN 1.59 mg/dL (<=0.50); CALCIUM 9.1 mg/dL (8.4-10.1); CREATININE 1.7 mg/dL (0.7-1.3); EST CRCL DRUG DOSING (CG) 26.59 mL/min; POTASSIUM,K 4.8 mEq/L (3.5-5.0); PROTEIN TOTAL,TP 6.3 g/dL (6.4-8.2)
[2024-12-08 07:25] LABS: BASOPHILS ABSOLUTE AUTO 0.04 10^3/uL (0.00-0.50); BASOPHILS PERCENT AUTO 0.8 % (0-1); EOSINOPHILS ABSOLUTE AUTO 0.11 10^3/uL (0.00-1.50); EOSINOPHILS PERCENT AUTO 2.1 % (0-6); HEMATOCRIT 34.9 % (42.0-52.0); HEMOGLOBIN 11.4 g/dL (14.0-18.0); IMMATURE GRAN ABSOLUTE AUTO 0.01 10^3/uL (0.00-0.49); IMMATURE GRAN PERCENT AUTO 0.2 % (0.0-4.9); LYMPHOCYTES ABSOLUTE AUTO 1.64 10^3/uL (0.60-5.00); LYMPHOCYTES PERCENT AUTO 30.8 % (24-44); MEAN CORPUSCULAR HEMOGLOBIN 28.6 pg (27.0-32.0); MEAN CORPUSCULAR HGB CONC 32.7 g/dL (32.0-36.0); MEAN CORPUSCULAR VOLUME 87.7 fL (83.0-97.0); MONOCYTES ABSOLUTE AUTO 0.46 10^3/uL (0.00-1.50); MONOCYTES PERCENT AUTO 8.6 % (0-10); NEUTROPHILS ABSOLUTE AUTO 3.07 x10^3/uL (1.80-8.00); NEUTROPHILS PERCENT AUTO 57.5 % (41-71); PLATELET COUNT,PLT 283 10^3/uL (150-400); RED BLOOD CELL COUNT 3.98 x10^6/uL (4.50-6.00); WHITE BLOOD CELL COUNT,WBC 5.3 10^3/uL (4.0-11.0)
[2024-12-08] MEDS: Tuberculin, PPD 5 Units/0.1 ML 1 ML MDV IDERM ONE (17:12)
[2024-12-08] MEDS: Insulin Glarg,Human.Rec.Analog 100 Unit/ML 10 ML Vial SUBCUT SCH (19:24)
[2024-12-09 07:37] VITALS: BP 147/78; PULSE 80
== END 2024-12-09 10:20 | DRG 690 ==
LOC: CC.ED 20:00 → CC.MS 21:20 → UNDOADMIN 21:45 → CC.MS 21:45
PROVIDERS: ADMIT Physician Assistant Medical; ATTEND Physician Assistant Medical
DX: N30.00 Acute cystitis without hematuria (principal); N18.9 Chronic kidney disease, unspecified; N39.0 Urinary tract infection, site not specified; N18.4 Chronic kidney disease, stage 4 (severe); E11.65 Type 2 diabetes mellitus with hyperglycemia; N17.9 Acute kidney failure, unspecified; E87.5 Hyperkalemia; R73.9 Hyperglycemia, unspecified; Z79.890 Hormone replacement therapy; Z66 Do not resuscitate; I25.10 Atherosclerotic heart disease of native coronary artery without angina pectoris; E78.00 Pure hypercholesterolemia, unspecified; I10 Essential (primary) hypertension; N40.0 Benign prostatic hyperplasia without lower urinary tract symptoms; M19.90 Unspecified osteoarthritis, unspecified site; F32.A Depression, unspecified; E11.9 Type 2 diabetes mellitus without complications; D64.9 Anemia, unspecified; Z79.4 Long term (current) use of insulin; Z79.01 Long term (current) use of anticoagulants; Z79.899 Other long term (current) drug therapy; Z95.5 Presence of coronary angioplasty implant and graft
CPT/HCPCS: 36415; 80053; 81001; 82947; 83735; 84132; 85025; 86140; 86580; 87086; 87088; 87186; 87426-QW; 93005; 93010; 97110-GP; 97161-GP; 99285; A9270-GY; J0696; J1815-GY; J7030